=== PATIENT | female | born 1965 | race Caucasian/White ===

== ENCOUNTER 2016-09-30 15:37 | Emergency (ER) | payer BC ==
[~2016-09-30] VITALS: Ht 170.2 cm; Wt 83.8 kg
[~2016-09-30 15:37] MED LIST: ALPR0.5T PO; MULT-587 PO; PARO40TA72 PO; TOPI50TA57 PO
--- OUTSIDE RECORDS SUMMARY | 2016-09-30 15:41 | XMS REPORT | Referral Summary ---
Author Author [facility], [facility] Organization [facility] Address Unknown Phone Unavailable Care Team Providers Care Party Plan Sales Consultant Name Role Phone Kimberly Tejeda Primary Care Physician [phone] Encounter VC Date(s): 04/18/15 - 04/18/15 [facility], [address] [place] [address] Discharge Diagnosis: Pleurisy Discharge Disposition: 01-Home or Self Care Attending Physician: Bandar Adams DO Admitting Physician: Bandar Adams DO Vital Signs Most recent to 1 oldest [Reference Range]: Temperature Tympanic 37.4 degC [36.6-38.1 degC] (04/18/15 1:49 PM) Peripheral Pulse 84 bpm Rate [60-100 bpm] (04/18/15 1:49 PM) Blood Pressure 127/85 mmHg [90-140/60-90 mmHg] (04/18/15 1:49 PM) Problem List Condition Effective Dates Status Health Status Informant Alcohol Active abuse(Confirmed) Alcohol abuse Active (disorder)(Confirmed ) Anal Active patient fistula(Confirmed) Anxiety state Active (finding)(Confirmed) Benign essential Active hypertension (disorder)(Confirmed ) Depression(Confirmed Active ) Diverticulitis(Confi Active rmed) Anxiety Active disorder(Confirmed) hypertension(Confirm Active ed) Obesity(Confirmed) Active patient Panic Active disorder(Confirmed) Panic disorder Active without agoraphobia (disorder)(Confirmed ) Psoriasis(Confirmed) Active Tobacco Active patient user(Confirmed) Allergies, Adverse Reactions, Alerts Substance Reaction Severity Status Latex rash Active stinging of the lips penicillin Active sulfanilamide topical Active Medications ALPRAZolam 0.5 mg oral tablet 0.5 mg 1 tabs, Oral, BID, as needed for anxiety, Delphine Dominguez, # 30 tabs, 0 Refill(s) Start Date: 02/14/15 Status: Ordered Combivent Respimat CFC free 20 mcg-100 mcg/inh inhalation aerosol 1 puffs, Inhalation, QID, # 1 inhalers, 1 Refill(s), Pharmacy: [facility] #[id number] Start Date: 04/04/15 Status: Ordered Diflucan 150 mg oral tablet 150 mg 1 tabs, Oral, qWeek, # 2 tabs, 0 Refill(s), Pharmacy: [facility] # [id number], 1 tabs Oral qWeek Start Date: 04/12/15 Stop Date: 04/19/15 Status: Ordered meloxicam 15 mg oral tablet 15 mg 1 tabs, Oral, Daily, # 30 tabs, 0 Refill(s), Pharmacy: [id number], 1 tabs Oral Daily Start Date: 04/01/15 Status: Ordered Naprosyn 500 mg oral tablet 500 mg 1 tabs, Oral, BID, # 60 tabs, 0 Refill(s), Pharmacy: [facility] # [id number], 1 tabs Oral BID Start Date: 04/18/15 Status: Ordered topiramate 50 mg oral tablet 50 mg 1 tabs, Oral, QID, 0 Refill(s) Start Date: 02/06/15 Status: Ordered Xanax 0.5 mg oral tablet 0.5 mg 1 tabs, Oral, BID, as needed for anxiety, X 30 days, # 45 tabs, 0 Refill( s), AUREA Start Date: 04/01/15 Stop Date: 05/01/15 Status: Ordered Results No data available for this section Immunizations Vaccine Date Refusal Reason pneumococcal 23-polyvalent vaccine 10/26/13 Procedures Procedure Date Related Diagnosis Body Site Fistulectomy Anal1 02/07/15 Colonoscopy 2001 Colonoscopy 1998 Hysterectomy 1990 Breast augmentation Tonsillectomy Tooth extraction2 1auto-populated from documented surgical case 2WISDOM TEETH Social History Social History Type Response Smoking Status Current every day smoker; Type: Cigarettes; Tobacco use per day: Pack; Number of years: 22 Assessment and Plan Extracted from: Title: Office Visit Note Author: Bandar Adams DO Date: 04/18/15 Assessment/Plan Pleurisy 1. Chest x-ray demonstrate resolving pneumonia. 2. History and clinical finding are consistent with pleurisy. 3. Was treated in the office with 60mg of Toradol after initial presentation, patient was observed for 30 minutes, at dismissal she had improvement in her discomfort. 4. Was dismissed with Rx for Naproxen 500mg bid for 2-4 weeks. 5. Continue with breathing treatment. 6. Continue with smoking cessation effort. Ordered: Office Visit Level 4 Est 38619 XR Chest 2 Views
--- OUTSIDE RECORDS SUMMARY | 2016-09-30 15:41 | XMS REPORT | Referral Summary ---
Author Author [facility], [facility] Organization [facility] Address Unknown Phone Unavailable Care Team Providers Care Dramatic Agent Name Role Phone Kimberly Tejeda Primary Care Physician [phone] Encounter VC Date(s): 06/05/15 - 06/05/15 [facility], [address] [place] [address] Discharge Diagnosis: Anxiety Discharge Disposition: 01-Home or Self Care Attending Physician: Bandar Adams DO Admitting Physician: Bandar Adams DO Vital Signs Most recent to 1 oldest [Reference Range]: Temperature Tympanic 36.6 degC [36.6-38.1 degC] (06/05/15 8:32 AM) Peripheral Pulse 80 bpm Rate [60-100 bpm] (06/05/15 8:32 AM) Blood Pressure 120/80 mmHg [90-140/60-90 mmHg] (06/05/15 8:32 AM) Problem List Condition Effective Dates Status Health Status Informant Alcohol Active abuse(Confirmed) Alcohol abuse Active (disorder)(Confirmed ) Anal Active patient fistula(Confirmed) Anxiety state Resolved (finding)(Confirmed) Benign essential Active hypertension (disorder)(Confirmed ) [...] QID, # 1 inhalers, 1 Refill(s), Pharmacy: [facility] #[id number] Start Date: 04/04/15 Status: Ordered Combivent Respimat CFC free 20 mcg-100 mcg/inh inhalation aerosol See Instructions, INHALE ONE INHALATION BY MOUTH FOUR TIMES A DAY, # 4 unknown unit, eRx: [facility] #[id number], INHALE ONE INHALATION BY MOUTH FOUR TIMES A DAY Start Date: 05/29/15 Status: Ordered meloxicam 15 mg oral tablet 15 mg 1 tabs, Oral, Daily, # 30 tabs, 0 Refill(s), Pharmacy: [id number], 1 tabs Oral Daily Start Date: 04/01/15 Status: Ordered Naprosyn 500 mg oral tablet See Instructions, TAKE ONE TABLET BY MOUTH TWICE A DAY, # 60 tabs, 1 Refill(s), eRx: [facility] #[id number], TAKE ONE TABLET BY MOUTH TWICE A DAY Start Date: 05/14/15 Status: Ordered Paxil 40 mg oral tablet 40 mg 1 tabs, Oral, Daily, # 30 tabs, 0 Refill(s), Pharmacy: [facility] # [id number], 1 tabs Oral Daily Start Date: 06/05/15 Status: Ordered topiramate 50 mg oral tablet 50 mg 1 tabs, Oral, QID, 0 Refill(s) Start Date: 02/06/15 Status: Ordered Results No data available for [...] Visit Note Author: Bandar Adams DO Date: 06/05/15 Assessment/Plan Anxiety 1. We will increase the Paxil to 40 mg daily. 2. Continue cutting back on alcohol consumption with the goal of alcohol cessation. 3. Continue cutting back on tobacco cessation. 4. Follow-up in a month for reevaluation since we titrating the Paxil, sooner if worsening symptoms or suicidal thoughts. Patient voiced understanding. Ordered: Office Visit Level 4 Est [id number] Orders: PARoxetine, 40 mg 1 tabs, Oral, Daily, # 30 tabs, 0 Refill(s), Pharmacy: [facility] #[id number], 1 tabs Oral Daily
--- OUTSIDE RECORDS SUMMARY | 2016-09-30 15:41 | XMS REPORT | Referral Summary ---
Author Author [facility], [facility] Organization [facility] Address Unknown Phone Unavailable Care Team Providers Care Environmental Property Assessor Name Role Phone Kimberly Tejeda Primary Care Physician [phone] Encounter VC Date(s): 12/21/14 - 12/21/14 [facility], [address] [place] [address] [place] Discharge Disposition: 01-Home or Self Care Attending Physician: Dank Tejeda MD Admitting Physician: Dank Tejeda MD Vital Signs Most recent to 1 oldest [Reference Range]: Temperature Tympanic 36.7 degC [36.6-38.1 degC] (12/21/14 8:14 AM) Peripheral Pulse 72 bpm Rate [60-100 bpm] (12/21/14 8:14 AM) Respiratory Rate 14 br/min [14-20 br/min] (12/21/14 8:14 AM) Blood Pressure 116/80 mmHg [90-140/60-90 mmHg] (12/21/14 8:14 AM) Problem List Condition Effective Dates Status [...] # 30 tabs, 0 Refill(s) Start Date: 06/28/15 Status: Ordered Combivent Respimat CFC free 20 mcg-100 mcg/inh inhalation aerosol 1 puffs, Inhalation, QID, # 1 inhalers, 1 Refill(s), Pharmacy: [facility] #[id number] Start Date: 04/04/15 Status: Ordered Combivent Respimat CFC free 20 mcg-100 mcg/inh inhalation aerosol See Instructions, INHALE ONE INHALATION BY MOUTH FOUR TIMES A DAY, # 4 unknown unit, eRx: [facility] #[id number], INHALE ONE INHALATION BY MOUTH FOUR TIMES A DAY Start Date: 05/29/15 Status: Ordered meloxicam 15 mg oral tablet See Instructions, TAKE ONE TABLET BY MOUTH DAILY, # 30 tabs, eRx: [facility] #[id number], TAKE ONE TABLET BY MOUTH DAILY Start Date: 06/10/15 Status: Ordered Naprosyn 500 mg oral tablet See Instructions, TAKE ONE TABLET BY MOUTH TWICE A DAY, # 60 tabs, 1 Refill(s), eRx: [facility] #[id number], TAKE ONE TABLET BY MOUTH TWICE A DAY Start Date: 05/14/15 Status: Ordered Paxil 40 mg oral tablet See Instructions, TAKE ONE TABLET BY MOUTH DAILY, # 30 tabs, 5 Refill(s), eRx: [facility] #[id number], TAKE ONE TABLET BY MOUTH DAILY Start Date: 07/01/15 Status: Ordered topiramate 50 mg oral tablet [...] Extracted from: Title: Office Visit Note Author: Dank Tejeda MD Date: 12/21/14 Assessment/Plan Anxiety state (finding) Benign essential hypertension (disorder) Mass of perirectal soft tissue Plan: We discussed that this possibly could be a fistula. If it is still present several weeks from now I may just have you see Dr. Eric for that. I am going to place you on an antibiotic. If it's not healing over the next week to 2 weeks then call us back. I did give you some Anusol for your occasional episodes of hemorrhoids. Follow-up in 6 months for hypertension. Orders: ciprofloxacin, 500 mg 1 tabs, Oral, q12hr, X 10 days, # 20 tabs, 0 Refill(s), Pharmacy: [facility], 1 tabs Oral q12hr,x10 days hydrocortisone topical, 1 daksha, Rectal, BID, X 14 days, # 30 g, 0 Refill(s), Pharmacy: [id number]
--- OUTSIDE RECORDS SUMMARY | 2016-09-30 15:41 | XMS REPORT | Summary of Care ---
Author Author Augustine Lucero M.D. Organization Unknown Address Unknown Phone Unavailable Care Team Providers Care Color Mixer Name Role Phone Augustine Lucero M.D. Unavailable Unavailable Bandar Adams Unavailable Unavailable Unavailable Unavailable Functional Status Name Dates Details Functional status health issues are not documented Status: Name Dates Details Cognitive status health issues are not documented Status: Problems Name Dates Details Laryngopharyngeal reflux (LPR) (478.79, J38.7) Status: Active Enlarged adenoids (474.12, J35.2) Status: Active Medications Name Dates Details Topiramate 100 MG Oral Tablet Augustine Lucero M.D. * Start 14-Apr-2016 Active PARoxetine HCl - 40 MG Oral Tablet * Refills: 0 Augustine Lucero M.D. * Start 14-Apr-2016 Active Allergies and Adverse Reactions Name Dates Details Latex Gloves MISC (Allergy) Status: Active Sulfa Drugs (Allergy) Status: Active Procedures Procedure Dates Details History of Tonsillectomy History of Breast Surgery Enlargement Procedure History of Shoulder Surgery Procedures not documented Immunization Name Dates Details Immunizations not documented Family History Name Dates Details Family history of hypertension (V17.49, Z82.49) Status: Active Social History Name Dates Details - Status: Name Dates Details Smoker. current status unknown Vital Signs Date Test Result Details 14-Apr-2016 10:57 BP Systolic 142 mm[Hg] Status: Comments: Location: ; Position: BP Diastolic 91 mm[Hg] Status: Comments: Location: ; Position: Temperature 97.9 f Status: Comments: Method: Heart Rate 80 /min Status: Comments: Location: ; Height 67 in Status: Weight 180 lb Status: Body Mass Index Calculated 28.19 kg/m2 Status: Body Surface Area Calculated 1.93 m2 Status: Results Date Description Value Details Results not documented Plan of Care Name Dates Details Planned Observations Planned Goals not documented Planned Encounters Appointment; Provider: Augustine Lucero M.D. On 21-Jul-2016 09:15 Instructions Name Dates Details Instructions not documented Encounters Appointment; Augustine Lucero M.D. Encounter Diagnosis: Problem not documented On 14-Apr-2016 10:30
--- OUTSIDE RECORDS SUMMARY | 2016-09-30 15:41 | XMS REPORT | Referral Summary ---
Author Author [facility], [facility] Organization [facility] Address Unknown Phone Unavailable Care Team Providers Care Barn Boss Name Role Phone Kimberly Tejeda Primary Care Physician [phone] Encounter VC Date(s): 04/12/15 - 04/12/15 [facility], [address] [place] [address] [place] Discharge Diagnosis: Alcoholism /alcohol abuse Discharge Diagnosis: Tobacco abuse counseling Discharge Diagnosis: Right middle lobe pneumonia Discharge Disposition: 01-Home or Self Care Attending Physician: Bandar Adams DO Admitting Physician: Bandar Adams DO Vital Signs Most recent to 1 oldest [Reference Range]: Temperature Tympanic 36 degC [36.6-38.1 degC] *LOW* (04/12/15 8:05 AM) Peripheral Pulse 65 bpm Rate [60-100 bpm] (04/12/15 8:05 AM) Blood Pressure 109/60 mmHg [90-140/60-90 mmHg] (04/12/15 8:05 AM) Problem List Condition Effective Dates Status [...] QID, # 1 inhalers, 1 Refill(s), Pharmacy: [facility] #[id number] Start Date: 04/04/15 Status: Ordered Diflucan 150 mg oral tablet 150 mg 1 tabs, Oral, qWeek, # 2 tabs, 0 Refill(s), Pharmacy: [facility] # [id number], 1 tabs Oral qWeek Start Date: 04/12/15 Stop Date: 04/19/15 Status: Ordered meloxicam 15 mg oral tablet 15 mg 1 tabs, Oral, Daily, # 30 tabs, 0 Refill(s), Pharmacy: [id number], 1 tabs Oral Daily Start Date: 04/01/15 Status: Ordered predniSONE 20 mg oral tablet 20 mg 1 tabs, Oral, Daily, X 5 days, # 5 tabs, 0 Refill(s), Pharmacy: [facility] #[id number], 1 tabs Oral Daily,x5 days Start Date: 04/12/15 Stop Date: 04/17/15 Status: Ordered topiramate 50 mg oral tablet [...] section Immunizations Vaccine Date Refusal Reason pneumococcal 13-valent conjugate vaccine 10/26/13 pneumococcal 23-polyvalent vaccine 10/26/13 Procedures Procedure Date [...] Visit Note Author: Bandar Adams DO Date: 04/12/15 Assessment/Plan Alcoholism /alcohol abuse 1. Cessation recommended. 2. Patient voiced understanding but does not seem interested at this time. Ordered: Office Visit Level 4 Est 23208 Smoking and tobacco use cessation counseling visit 3 to 10 minutes 09874 Right middle lobe pneumonia 1. Continue Combivent 4 times a day. 2. Repeat chest x-ray today shows mild improvement compared to previous. 3. Clinically the patient appears to have improved. No additional need for antibiotic at this time. 4. May add Mucinex 2 capsules 3 times a day for mucolytic effect. We'll also add prednisone 20 mg dailyfor 5 days. 5. Again we addressed tobacco cessation, she does not want to try any dictations at this time. 6. Follow-up in a month for reevaluation and repeat chest x-ray, earlier if worsening symptoms or new respiratory presentation. Ordered: Office Visit Level 4 Est 64183 Tobacco abuse counseling 1. Cessation recommended,she will try to quit on her own. Ordered: Office Visit Level 4 Est 41047 Smoking and tobacco use cessation counseling visit 3 to 10 minutes 38095 Orders: fluconazole, 150 mg 1 tabs, Oral, qWeek, # 2 tabs, 0 Refill(s), Pharmacy: [facility] #[id number], 1 tabs Oral qWeek predniSONE, 20 mg 1 tabs, Oral, Daily, X 5 days, # 5 tabs, 0 Refill(s), Pharmacy: [facility] #[id number], 1 tabs Oral Daily,x5 days XR Chest 2 Views
--- OUTSIDE RECORDS SUMMARY | 2016-09-30 15:41 | XMS REPORT | Referral Summary ---
Author Author [facility], [facility] Organization [facility] Address Unknown Phone Unavailable Care Team Providers Care Guest Specialist Name Role Phone Bandar Adams Primary Care Physician [phone] Encounter VC Date(s): 04/18/15 - 04/18/15 [facility] [address] [place] [address] [place] Discharge Diagnosis: [...] Effective Dates Status Health Status Informant Alcohol abuse Active (disorder)(Confirmed ) Alcohol Active abuse(Confirmed) Anal Active patient fistula(Confirmed) Anxiety state Resolved (finding)(Confirmed) Benign essential Active hypertension (disorder)(Confirmed ) Depression(Confirmed Active ) Diverticulitis(Confi Active rmed) Anxiety Active disorder(Confirmed) hypertension(Confirm Active ed) Obesity(Confirmed) Active patient Panic disorder Active without agoraphobia (disorder)(Confirmed ) Panic Active disorder(Confirmed) Psoriasis(Confirmed) Active Tobacco Active patient user(Confirmed) Allergies, [...] QID, # 1 inhalers, 1 Refill(s), Pharmacy: [facility] #[id number] Start Date: 04/04/15 Status: Ordered Combivent Respimat CFC free 20 mcg-100 mcg/inh inhalation aerosol See Instructions, INHALE ONE INHALATION BY MOUTH FOUR TIMES A DAY, # 4 unknown unit, eRx: [facility] #[id number], INHALE ONE INHALATION BY MOUTH FOUR TIMES A DAY Start Date: 05/29/15 Status: Ordered meloxicam 15 mg oral tablet See Instructions, TAKE ONE TABLET BY MOUTH DAILY, # 30 tabs, eRx: [facility] #[id number], TAKE ONE TABLET BY MOUTH DAILY Start Date: 06/10/15 Status: Ordered meloxicam 15 mg oral tablet See Instructions, TAKE ONE TABLET BY MOUTH DAILY, # 30 tabs, 0 Refill(s), Pharmacy: [facility] #[id number], TAKE ONE TABLET BY MOUTH DAILY Start Date: 10/23/15 Status: Ordered Naprosyn 500 mg oral tablet See Instructions, TAKE ONE TABLET BY MOUTH TWICE A DAY, # 60 tabs, 1 Refill(s), eRx: [facility] #[id number], TAKE ONE TABLET BY MOUTH TWICE A DAY Start Date: 05/14/15 Status: Ordered Paxil 40 mg oral tablet See Instructions, TAKE ONE TABLET BY MOUTH DAILY, # 30 tabs, 5 Refill(s), eRx: [facility] #[id number], TAKE ONE TABLET BY MOUTH DAILY Start Date: 07/01/15 Status: Ordered topiramate 50 mg oral tablet 50 mg 1 tabs, Oral, QID, 0 Refill(s) Start Date: 02/06/15 Status: Ordered Results No data available for this section Immunizations Vaccine Date Refusal Reason pneumococcal 23-polyvalent vaccine 10/26/13 Procedures Procedure Date Related Diagnosis Body Site Colonoscopic polypectomy1 09/05/15 Fistulectomy Anal2 02/07/15 Colonoscopy3 2000 Colonoscopy 1998 Hysterectomy 1990 Breast augmentation Tonsillectomy Tooth extraction4 1Tubular adenoma 1, biopsies indicating lymphocytic colitis, sigmoid diverticulosis, avoid NSAIDs. 2auto-populated from documented surgical case 3diverticulitis 4WISDOM TEETH Social History Social History Type Response [...] effort. Ordered: Office Visit Level 4 Est 74928 XR Chest 2 Views
--- OUTSIDE RECORDS SUMMARY | 2016-09-30 15:41 | XMS REPORT | Summary of Care ---
Author Author Augustine Lucero M.D. Organization Unknown Address Unknown Phone Unavailable Care Team Providers Care Candle Making Supervisor Name Role Phone Augustine Lucero M.D. Unavailable Unavailable Techang Bandar Unavailable Unavailable Unavailable Unavailable Functional Status Name Dates Details Functional status health issues are not documented Status: Name Dates Details Cognitive status health issues are not documented Status: Problems Name Dates Details Enlarged adenoids (474.12, J35.2) Status: Active Laryngopharyngeal reflux (LPR) (478.79, J38.7) Status: Active Allergic rhinitis (477.9, J30.9) Status: Active Hypertrophy of both inferior nasal turbinates (478.0, J34.3) Status: Active Nasal obstruction (478.19, J34.89) Status: Active Medications Name Dates Details Topiramate [...] unknown Vital Signs Date Test Result Details 27-Jul-2016 12:50 Temperature 97 f Status: Comments: Method: Heart Rate 113 /min Status: Comments: Location: ; Physical Findings 99 Status: Comments: O2 Saturation Results Date Description Value Details Results not documented Plan of Care Name Dates Details Planned Observations Planned Goals not documented Instructions Name Dates Details Instructions not documented Encounters Appointment; Augustine Lucero M.D. Encounter Diagnosis: Problem not documented On 14-Apr-2016 10:30
--- OUTSIDE RECORDS SUMMARY | 2016-09-30 15:41 | XMS REPORT | Referral Summary ---
Author Author [facility], [facility] Organization [facility] Address Unknown Phone Unavailable Care Team Providers Care Terminal Gauger Supervisor Name Role Phone Bandar Adams Primary Care Physician [phone] Encounter Date(s): 04/01/15 - 04/01/15 [facility] [place] [address]- Discharge Diagnosis: Alcohol abuse Discharge Diagnosis: Lumbago Discharge Diagnosis: Anxiety disorder Discharge Diagnosis: Acute bronchitis Discharge Disposition: -Home or Self Care Attending Physician: Dank Tejeda MD Admitting Physician: Dank Tejeda MD Vital Signs Most recent to 1 oldest [Reference Range]: Temperature Tympanic 36.9 degC [36.6-38.1 degC] (04/01/15 2:29 PM) Peripheral Pulse 92 bpm Rate [60-100 bpm] (04/01/15 2:29 PM) Respiratory Rate 16 br/min [14-20 br/min] (04/01/15 2:29 PM) Blood Pressure 112/70 mmHg [90-140/60-90 mmHg] (04/01/15 2:29 PM) Problem List Condition Effective Dates Status [...] QID, # 1 inhalers, 1 Refill(s), Pharmacy: [facility] #[id number] Start Date: 04/04/15 Status: Ordered Combivent Respimat CFC free 20 mcg-100 mcg/inh inhalation aerosol See Instructions, INHALE ONE INHALATION BY MOUTH FOUR TIMES A DAY, # 4 unknown unit, eRx: [facility] #[id number], INHALE ONE INHALATION BY MOUTH FOUR TIMES A DAY Start Date: 05/29/15 Status: Ordered meloxicam 15 mg oral tablet See Instructions, TAKE ONE TABLET BY MOUTH DAILY, # 30 tabs, eRx: [facility] #[id number], TAKE ONE TABLET BY MOUTH DAILY Start Date: 06/10/15 Status: Ordered Naprosyn 500 mg oral tablet See Instructions, TAKE ONE TABLET BY MOUTH TWICE A DAY, # 60 tabs, 1 Refill(s), eRx: [facility] #[id number], TAKE ONE TABLET BY MOUTH TWICE A DAY Start Date: 05/14/15 Status: Ordered Paxil 40 mg oral tablet See Instructions, TAKE ONE TABLET BY MOUTH DAILY, # 30 tabs, 5 Refill(s), eRx: [facility] #[id number], TAKE ONE TABLET BY MOUTH DAILY Start [...] Visit Note Author: Dank Tejeda MD Date: 04/01/15 Assessment/Plan Acute bronchitis Alcohol abuse Anxiety disorder Lumbago, LUMBAGO Plan: We discussed the need to quit smoking, exercise,to stopped drinking alcoholand possibly go through her program. We discussed the need for weight loss and healthy lifestyle. I did prescribe an antibiotic for your bronchitis. I x-rayed her back and it looks like there is no compression at this point. We might consider doing physical therapy. We'll daily anti- inflammatory medication. Ordered: XR Spine Lumbosacral Minimum 4 Views Orders: ALPRAZolam, 0.5 mg 1 tabs, Oral, BID, as needed for anxiety, X 30 days , # 45 tabs, 0 Refill(s), AUREA azithromycin, 1 tabs, Oral, Daily, X 10 days, # 10 tabs, 0 Refill(s), Pharmacy : [id number], 1 tabs Oral Daily,x10 days Addendum Patient's here for preventative health care visit. I am adding preventative health by care to her assessments. Dank Tejeda MD on April 01, 2015 17:14:15 CDT
--- OUTSIDE RECORDS SUMMARY | 2016-09-30 15:41 | XMS REPORT | Summary of Care ---
Author Author Augustine Lucero M.D. Organization Unknown Address Unknown Phone Unavailable Care Team Providers Care Study Director Name Role Phone Augustine Lucero M.D. Unavailable Unavailable TecBandar mauricio Unavailable Unavailable Unavailable Unavailable Functional Status Name [...]
--- OUTSIDE RECORDS SUMMARY | 2016-09-30 15:42 | XMS REPORT | Referral Summary ---
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 Name Role Phone Bandar Adams Primary Care Physician [phone] Encounter VC Date(s): 02/07/15 - 02/07/15 [facility]3] [address] [place] [address] ZL Final: ANAL FISTULA Final: EXTERNAL HEMORRHOIDS WITHOUT MENTION OF COMPLICATION Final: ALCOHOL ABUSE, UNSPECIFIED DRINKING BEHAVIOR Final: BENIGN ESSENTIAL HYPERTENSION Final: DEPRESSIVE DISORDER, NOT ELSEWHERE CLASSIFIED Final: Panic disorder without agoraphobia Final: Other Psoriasis Final: TOBACCO USE DISORDER Discharge Disposition: 01-Home or Self Care Attending Physician: Rigoberto Cartagena MD Admitting Physician: Rigoberto Cartagena MD Vital Signs Most recent to 1 oldest [Reference Range]: Temperature Skin 36.2 degC [36-37 degC] (02/07/15 4:15 PM) Temperature Temporal 36.1 degC Artery [36.3-37.8 *LOW* degC] (02/07/15 12:14 PM) Peripheral Pulse 63 bpm Rate [60-100 bpm] (02/07/15 5:00 PM) Heart Rate Monitored 79 bpm [60-100 bpm] (02/07/15 4:15 PM) Respiratory Rate 16 br/min [14-20 br/min] (02/07/15 5:00 PM) Blood Pressure 117/71 mmHg [90-140/60-90 mmHg] (02/07/15 5:00 PM) Mean Arterial 96 mmHg Pressure, Cuff (02/07/15 4:15 PM) SpO2 98 % (02/07/15 4:30 PM) Problem List Condition Effective Dates Status [...] tabs, Oral, BID, as needed for anxiety, Danettemadi Dominguez, # 30 tabs, 0 Refill(s) Start Date: 06/28/15 Status: Ordered Combivent Respimat CFC free 20 mcg-100 mcg/inh inhalation aerosol 1 puffs, Inhalation, QID, # 1 inhalers, 1 Refill(s), Pharmacy: [facility] #[id number] Start Date: 04/04/15 Status: Ordered Combivent Respimat CFC free 20 mcg-100 mcg/inh inhalation aerosol See Instructions, INHALE ONE INHALATION BY MOUTH FOUR TIMES A DAY, # 4 unknown unit, eRx: [facility] #[id number], INHALE ONE INHALATION BY MOUTH FOUR TIMES A DAY Start Date: 05/29/15 Status: Ordered meloxicam 15 mg oral tablet See Instructions, TAKE ONE TABLET BY MOUTH DAILY, # 30 tabs, eRx: [facility] #[id number], TAKE ONE TABLET BY MOUTH DAILY Start Date: 06/10/15 Status: Ordered Naprosyn 500 mg oral tablet See Instructions, TAKE ONE TABLET BY MOUTH TWICE A DAY, # 60 tabs, 1 Refill(s), eRx: [facility] #[id number], TAKE ONE TABLET BY MOUTH TWICE A DAY Start Date: 05/14/15 Status: Ordered Paxil 40 mg oral tablet See Instructions, TAKE ONE TABLET BY MOUTH DAILY, # 30 tabs, 5 Refill(s), eRx: [facility] #[id number], TAKE ONE TABLET BY MOUTH DAILY Start Date: 07/01/15 Status: Ordered topiramate 50 mg oral tablet 50 mg 1 tabs, Oral, QID, 0 Refill(s) Start Date: 02/06/15 Status: Ordered Results Chemistry Most recent to 1 oldest [Reference Range]: Sodium Lvl [136-144 136 mEq/L mEq/L] (02/07/15 1:11 PM) Potassium Lvl 3.5 mEq/L [3.6-5.1 mEq/L] *LOW* (02/07/15 1:11 PM) Chloride [99-109 109 mEq/L mEq/L] (02/07/15 1:11 PM) CO2 [22-32 mEq/L] 20 mEq/L *LOW* (02/07/15 1:11 PM) AGAP [3-20] 7 (02/07/15 1:11 PM) BUN [4-20 mg/dL] 10 mg/dL (02/07/15 1:11 PM) Glucose Lvl [70-100 106 mg/dL mg/dL] *HI* (02/07/15 1:11 PM) Creatinine Lvl 0.81 mg/dL [0.44-1.03 mg/dL] (02/07/15 1:11 PM) eGFR [>60] >60 1 (02/07/15 1:11 PM) Calcium Lvl 8.7 mg/dL [8.6-10.0 mg/dL] (02/07/15 1:11 PM) Blood Glucose, 99 mg/dL Capillary [70-100 (02/07/15 12:11 PM) mg/dL] 1Result Comment: Multiply eGFR results by 1.21 for race. Immunizations Vaccine Date Refusal Reason pneumococcal 23-polyvalent vaccine 10/26/13 Procedures Procedure Date Related Diagnosis Body Site Fistulectomy Anal1 02/07/15 Colonoscopy 2001 Colonoscopy 1998 Hysterectomy 1990 Breast augmentation Tonsillectomy Tooth extraction2 1auto-populated from documented surgical case 2WISDOM TEETH Social History Social History Type Response Smoking Status Current every day smoker; Type: Cigarettes; Tobacco use per day: Pack; Number of years: 22 Assessment and Plan No data available for this section
--- OUTSIDE RECORDS SUMMARY | 2016-09-30 15:42 | XMS REPORT | Continuity of Care Document ---
Author Author [facility] Address Unknown Phone Unavailable Allergies Active Description Code Type Severity Reaction Onset Reported/Identified Relationship to Patient Clinical Status Yes SULFA Drug Allergy N/A N/A Medications Problems Procedures Results Encounters ACCT No. Visit Date/Time Discharge Status Pt. Type Provider Facility Loc./Unit Complaint [id number] 05/15/2016 06:50:23 05/15/2016 06:50:23 Outpatient [id number] 04/22/2016 08:22:51 04/22/2016 08:22:51 DIS Outpatient [id number] 04/16/2016 06:54:23 04/16/2016 06:54:23 ACT Outpatient [id number] 03/03/2016 03:58:39 03/03/2016 03:58:39 ACT Outpatient [id number] 03/03/2016 03:25:07 03/03/2016 03:25:07 ACT Outpatient [id number] 03/02/2016 20:36:00 03/02/2016 20:36:00 ACT Outpatient [id number] 03/02/2016 19:38:15 03/02/2016 19:38:15 ACT Outpatient [id number] 03/02/2016 19:20:25 03/02/2016 19:20:25 ACT Outpatient [id number] 10/01/2015 13:43:06 10/01/2015 13:43:06 DIS Outpatient [id number] 09/30/2015 13:50:19 09/30/2015 13:50:20 DIS Outpatient [id number] 09/30/2015 13:49:38 09/30/2015 13:49:39 DIS Outpatient [id number] 09/30/2015 13:49:37 09/30/2015 13:49:38 DIS Outpatient [id number] 09/30/2015 13:36:25 09/30/2015 13:36:25 DIS Outpatient [id number] 09/30/2015 11:34:11 09/30/2015 11:34:13 DIS Outpatient [id number] 09/30/2015 11:33:58 09/30/2015 11:34:00 DIS Outpatient [id number] 09/30/2015 11:03:12 09/30/2015 11:03:14 DIS Outpatient [id number] 09/30/2015 10:51:07 09/30/2015 10:51:07 DIS Outpatient [id number] 09/30/2015 10:51:04 09/30/2015 10:51:05 DIS Outpatient [id number] 09/30/2015 10:51:03 09/30/2015 10:51:03 DIS Outpatient [id number] 09/30/2015 10:50:59 09/30/2015 10:51:00 DIS Outpatient [id number] 09/30/2015 10:46:54 09/30/2015 10:46:55 DIS Outpatient [id number] 07/02/2015 12:21:39 07/02/2015 12:21:44 DIS Outpatient [id number] 04/02/2015 09:39:57 04/02/2015 23:59:59 CLS Outpatient [id number] 04/02/2015 09:39:20 04/02/2015 23:59:59 CLS Outpatient [id number] 04/02/2015 09:39:19 04/02/2015 09:39:19 DIS Outpatient [id number] 04/02/2015 09:38:06 04/02/2015 09:38:11 DIS Outpatient [id number] 05/22/2016 15:06:33 DIS Outpatient [id number] 05/20/2016 12:50:32 DIS Outpatient [id number] 04/22/2016 08:23:04 DIS Outpatient [id number] 04/16/2016 09:05:14 ACT Outpatient [id number] 04/16/2016 09:01:42 ACT Outpatient [id number] 04/16/2016 09:01:41 ACT Outpatient [id number] 04/16/2016 08:57:27 ACT Outpatient [id number] 04/16/2016 08:57:03 ACT Outpatient [id number] 04/16/2016 08:57:01 ACT Outpatient [id number] 04/16/2016 08:56:05 ACT Outpatient [id number] 04/16/2016 08:55:45 ACT Outpatient [id number] 04/16/2016 08:55:43 ACT Outpatient [id number] 04/09/2016 09:12:43 Document Registration [id number] 04/08/2016 12:42:02 Document Registration [id number] 04/06/2016 14:46:00 Document Registration [id number] 10/01/2015 10:59:08 DIS Outpatient [id number] 09/30/2015 13:50:24 DIS Outpatient [id number] 09/30/2015 11:58:27 DIS Outpatient [id number] 09/30/2015 11:55:25 DIS Outpatient [id number] 09/30/2015 11:06:39 DIS Outpatient [id number] 09/30/2015 11:00:00 Document Registration [id number] 09/30/2015 10:59:00 Document Registration [id number] 09/30/2015 10:51:05 DIS Outpatient
--- OUTSIDE RECORDS SUMMARY | 2016-09-30 15:42 | XMS REPORT | Continuity of Care Document ---
Author Author [facility] Organization [facility] Address Unknown Phone Unavailable Support Name Relationship Address Phone FELICIA DAUGHERTY Caregiver [facility] [address] [place] [address] ROBERTO SCHERER MD Caregiver [address] [place] [address] [phone] KAYLA AGRCÍA Next Of Kin [address] [place] [address] Insurance Providers Payer Name Policy Number Subscriber Name Relationship [facility] [id number] Elyse Francisco 20 Self Advance Directives Directive Response Recorded Date/Time Advanced Directives Type None 09/08/14 1:39pm Problems Medical Problems Problem Onset Date Status Delirium tremens Unknown Active Alcohol abuse Unknown Active Alcohol withdrawal seizure Unknown Active HTN (hypertension) Unknown Active Depression Unknown Active Anxiety Unknown Active Obesity (BMI 30.0-34.9) Unknown Active Numbness and tingling Unknown Active Anxiety Unknown Active Medications Medication Dose Route Sig Days/Qty Instructions Order Date Discontinued Date Status Alprazolam 0.5 Mg PO TWICE A DAY PRN ANXIETY 02/27/14 Active Mirtazapine 30 Mg PO BEDTIME 02/27/14 Active Lisinopril 1 Tab PO BEDTIME 02/27/14 Active Aspirin 325 Mg PO NEEDED 30 Days 02/27/14 Active Oxazepam 1 Cap PO taper For ALCOHOL WITHDRAWL SYMPTOMS 30 Qty 02/28/14 Active Omeprazole Magnesium 1 Tab PO DAILY PRN DYSPEPSIA 30 Qty 02/28/14 Active Multivitamin 1 Tab PO DAILY 30 Qty 02/28/14 Active Calcium Carbonate/Vitamin D3 1 Tab PO DAILY 30 Days 02/28/14 Active Social History Query Response Start Date Stop Date Smoking Status Current every day smoker Hospital Discharge Instructions No hospital discharge instructions. Plan of Care No plan of care. Functional Status Query Response Date Recorded Physical Hygiene Self September 08, 2014 1:39pm Disabilities None September 08, 2014 1:39pm Devices Used None September 08, 2014 1:39pm Dressing Self September 08, 2014 1:39pm Ambulation Self September 08, 2014 1:39pm Diet Self September 08, 2014 1:39pm Mental Status Alert September 08, 2014 2:55pm Disabilities None September 08, 2014 1:39pm Devices Used None September 08, 2014 1:39pm Physical Hygiene Self September 08, 2014 1:39pm Dressing Self September 08, 2014 1:39pm Ambulation Self September 08, 2014 1:39pm Diet Self September 08, 2014 1:39pm Allergies, Adverse Reactions, Alerts Allergen Type Severity Reaction Status Last Updated Latex Allergy Mild dry red skin Active 02/27/14 SULFA Allergy Mild rash Active 02/27/14 Immunizations Name Given Type Hx Influenza Vaccination Y 2013 Historical Hx Pneumococcal Vaccination Y UNSURE OF DATE BUT BELIEVE IT WAS IN 2012 Historical Hx Influenza Vaccination Y 2013 Historical Vital Signs Acute Vital Signs Vital Response Date/Time Temperature (Fahrenheit) 97.6 deg F (96.8 - 99.1) Temperature (Calculated Celsius) 36.88730 degrees C (36.0 - 37.3) Pulse Rate (adult) 91 bpm (60 - 100) Respiratory Rate 16 breaths/min (10 - 20) O2 Sat by Pulse Oximetry 95 % (90 - 100) Blood Pressure 122/76 mm Hg Height 5 ft 7 in Weight 204 lb Body Mass Index 32.0 kg/m^2 Results Test Source Date Result Interp. Ref. Range Comments Alanine Aminotransferase (ALT/SGPT) February 27, 2014 4:55am 27 U/L N 9- 52 Albumin February 27, 2014 4:55am 4.1 G/DL N 3.5-5.0 Albumin/Globulin Ratio February 27, 2014 4:55am 1.0 RATIO L 1.1-2.2 Alcohol, Quantitative February 27, 2014 4:55am <10 MG/DL - Alkaline Phosphatase February 27, 2014 4:55am 77 U/L N 38-126 Anion Gap September 08, 2014 2:35pm 11 MEQ/L N 5-15 Aspartate Amino Transf (AST/SGOT) February 27, 2014 4:55am 24 U/L N 14-36 BUN/Creatinine Ratio September 08, 2014 2:35pm 19 RATIO N 6-26 Basophils # (Auto) September 08, 2014 2:35pm 0.1 T/MM3 N 0-0.2 Basophils (%) (Auto) September 08, 2014 2:35pm 0.7 % N 0-2 Blood Urea Nitrogen September 08, 2014 2:35pm 15.0 MG/DL N 7-17 Calcium Level September 08, 2014 2:35pm 8.6 MG/DL N 8.4-10.2 Calculated Osmolality September 08, 2014 2:35pm 267 MOSM/KG N 261-280 Carbon Dioxide Level September 08, 2014 2:35pm 22 MEQ/L N 22-30 Chemistry Specimen Hemolysis September 08, 2014 2:35pm < 15 0-25 0-25 : No Hemolysis.26-70: Slight Hemolysis - can falsely elevate K and Urine Protein. 71-285: Moderate Hemolysis - can falsely elevate K, Troponin I, CA 19-9, PTH, CSF GLucose, and Urine Protein, and can falsely decrease Phenytoin. 286-999: Gross Hemolysis - can falsely elevate K, Troponin I, CA 19-9, PTH, CSF Glucose, and Urine Protine, and can falsely decrease Phenytoin. Recommend specimen recollection. Chloride Level September 08, 2014 2:35pm 105 MEQ/L N 98-107 Creatinine September 08, 2014 2:35pm 0.8 MG/DL N 0.7-1.2 Eosinophils # (Auto) September 08, 2014 2:35pm 0.4 T/MM3 N 0-0.5 Eosinophils (%) (Auto) September 08, 2014 2:35pm 5.6 % H 0-4 Free Thyroxine February 27, 2014 3:39pm 0.83 NG/DL N 0.78-2.19 COMMENT may use blood in lab Globulin February 27, 2014 4:55am 4.1 G/DL H 2.4-3.6 Glomerular Filtration Rate Calc September 08, 2014 2:35pm 77 - Glucose Level September 08, 2014 2:35pm 98 MG/DL N 65-110 Hematocrit September 08, 2014 2:35pm 36.8 % N 36-46 Hemoglobin September 08, 2014 2:35pm 12.3 GM/DL N 12-16 Icterus Index September 08, 2014 2:35pm < 2 0-7 Immature Granulocyte # (Auto) September 08, 2014 2:35pm 0.03 T/MM3 N 0.00 -0.03 Immature Granulocyte % (Auto) September 08, 2014 2:35pm 0.4 % N 0.0-0.5 Lab Scanned Report March 02, 2014 4:17pm REFERENCE LAB [id number] - Lymphocytes # (Auto) September 08, 2014 2:35pm 1.9 T/MM3 N 1-4.8 Lymphocytes (%) (Auto) September 08, 2014 2:35pm 27.3 % N 23-45 Mean Corpuscular Hemoglobin September 08, 2014 2:35pm 31.9 UUG N 26-34 Mean Corpuscular Hemoglobin Concent September 08, 2014 2:35pm 33.4 GM/DL N 31-37 Mean Corpuscular Volume September 08, 2014 2:35pm 95.6 UM3 N 80-100 Mean Platelet Volume September 08, 2014 2:35pm 10.5 UM3 N 9.4-12.4 Monocytes # (Auto) September 08, 2014 2:35pm 0.6 T/MM3 N 0-0.8 Monocytes (%) (Auto) September 08, 2014 2:35pm 8.5 % N 0-9.0 Neutrophils # (Auto) September 08, 2014 2:35pm 4.0 T/MM3 N 1.8-7.7 Neutrophils (%) (Auto) September 08, 2014 2:35pm 57.5 % N 33-66 Platelet Count September 08, 2014 2:35pm 257 T/MM3 N 130-400 Potassium Level September 08, 2014 2:35pm 3.9 MEQ/L N 3.6-5 Prealbumin February 27, 2014 4:55am 48.6 MG/DL H 17.6-36.0 Prolactin February 27, 2014 4:55am 41.5 NG/ML - Normal Female (Non- ): 3.0-18.6 ng/ml;Males: 3.7-17.9 ng/ml RDW Standard Deviation September 08, 2014 2:35pm 41.5 FL N 36.9-50.2 Red Blood Count September 08, 2014 2:35pm 3.85 M/MM3 L 4.00-5.20 Sodium Level September 08, 2014 2:35pm 138 MEQ/L N 134-144 Thyroid Stimulating Hormone (TSH) February 27, 2014 4:55am 6.66 MIU/L H 0.47-4.68 COMMENT maci Total Bilirubin February 27, 2014 4:55am 0.30 MG/DL N 0.20-1.30 Total Protein February 27, 2014 4:55am 8.2 G/DL N 6.3-8.2 Turbidity September 08, 2014 2:35pm < 20 0-20 Vitamin B12 Level February 27, 2014 4:55am 406 PG/ML N 239-931 White Blood Count September 08, 2014 2:35pm 6.9 T/MM3 N 4.5-11.0 Name: ELYSE FRANCISCO Unit #: [id number] : [id number] Sex: F Loc / Svc: ANATOLY DOS: 08/17/14 Signed Report #: [id number] DIAGNOSTIC IMAGING REPORT TYPE OF EXAM: MRI BRAIN W/WO CONTRAST Dictated By: MAURY ASH MD Indication: ITS.REASON: 782.0 LT ARM NUMBNESS MRI BRAIN W/WO CONTRAST: Comparisons: None Technique: Multiplanar, multisequence, MR imaging of the head with and without contrast was acquired. Contrast: 9 mL of Gadavist FINDINGS: The ventricles are of normal size, shape, and contour for the patient's age. The brain stem, cerebellum, and cerebral hemispheres have a normal morphologic appearance as well as MR signal intensity on all pulse sequences. Following intravenous administration of contrast, no areas of abnormal enhancement are evident. There are no areas of restricted diffusion to suggest an acute infarct. There is no evidence of an intracranial mass lesion, intracranial hemorrhage, or hydrocephalus. The visualized portions of the orbits, calvarium, paranasal sinuses, and skull base demonstrate no significant abnormality. IMPRESSION: Normal exam . Procedures Procedure Status Date Provider(s) MRI BRAIN STEM W/O & W/DYE completed 08/17/14 GADAVIST 10ML SDV - Contrast,Gadavist 10ml completed 08/17/14 Encounters Encounter Location Date/Time Departed Emergency Room [facility] 09/08/14 1:39pm Registered [facility] 08/17/14 6:53am Recent Diagnosis
--- OUTSIDE RECORDS SUMMARY | 2016-09-30 15:42 | XMS REPORT | Referral Summary ---
Author Author [facility] Organization [facility] Address Unknown Phone Unavailable Care Team Providers Care Practice Management Consultant Name Role Phone Bandar Adams Primary Care Physician [phone] Encounter VC Date(s): 05/10/15 - 05/10/15 [facility] [place] [address] Discharge Diagnosis: Alcohol abuse Discharge Diagnosis: Heart palpitations Discharge Diagnosis: Anxiety disorder Discharge Disposition: 01-Home or Self Care Attending Physician: Bandar Adams DO Admitting Physician: Bandar Adams DO Referring Physician: Dank Tejeda MD Vital Signs Most recent to 1 oldest [Reference Range]: Temperature Tympanic 36.3 degC [36.6-38.1 degC] *LOW* (05/10/15 11:04 AM) Peripheral Pulse 85 bpm Rate [60-100 bpm] (05/10/15 11:04 AM) Blood Pressure 118/81 mmHg [90-140/60-90 mmHg] (05/10/15 11:04 AM) SpO2 98 % (05/10/15 11:04 AM) Problem List Condition Effective Dates Status [...] QID, # 1 inhalers, 1 Refill(s), Pharmacy: [facility] #[id number] Start Date: 04/04/15 Status: Ordered Combivent Respimat CFC free 20 mcg-100 mcg/inh inhalation aerosol See Instructions, INHALE ONE INHALATION BY MOUTH FOUR TIMES A DAY, # 4 unknown unit, eRx: [facility] #[id number], INHALE ONE INHALATION BY MOUTH FOUR TIMES A DAY Start Date: 05/29/15 Status: Ordered meloxicam 15 mg oral tablet See Instructions, TAKE ONE TABLET BY MOUTH DAILY, # 30 tabs, eRx: [facility] #[id number], TAKE ONE TABLET BY MOUTH DAILY Start Date: 06/10/15 Status: Ordered meloxicam 15 mg oral tablet See Instructions, TAKE ONE TABLET BY MOUTH DAILY, # 30 tabs, 0 Refill(s), Pharmacy: [facility] #[id number], TAKE ONE TABLET BY MOUTH DAILY Start Date: 10/23/15 Status: Ordered Naprosyn 500 mg oral tablet See Instructions, TAKE ONE TABLET BY MOUTH TWICE A DAY, # 60 tabs, 1 Refill(s), eRx: [facility] #[id number], TAKE ONE TABLET BY MOUTH TWICE A DAY Start Date: 05/14/15 Status: Ordered Paxil 40 mg oral tablet See Instructions, TAKE ONE TABLET BY MOUTH DAILY, # 30 tabs, 5 Refill(s), eRx: [facility] #[id number], TAKE ONE TABLET BY MOUTH DAILY Start [...] Extracted from: Title: Office Visit Note Author: Bnadar Adams DO Date: 05/10/15 Assessment/Plan Alcohol abuse, Alcohol abuse, uncomplicated Pathophysiology of this presentation, and differential diagnosis, discussed in detail with the patient. All questions were answered. 1. I suspect her alcoholism is contributing to her increased symptoms of anxiety. 2. Recommended seeking treatment for alcoholism and alcohol cessation. 3. Patient voiced understanding. Ordered: Office Visit Level 5 Est 37854 Anxiety disorder, Generalized anxiety disorder 1. Recommendation as above. 2. She was started on Paxil 30 mg daily, she is to follow-up in 2 weeks for reevaluation. 3. Continue alprazolam as needed until the Paxil is working better. Patient was advised that the use of benzodiazepine to treat uncontrolled anxiety disorder is inadequate. 4. If her symptoms do not improve then we plan on sending her to psychiatrist for further evaluation and management. Ordered: Office Visit Level 5 Est 48264 Cough 1. The coughing is likely secondary to chronic smoking. Recommended tobacco cessation, patient voiced understanding. 2. Repeat chest x-ray today was for normal finding. The pneumonia on the right middle lobe has cleared completely. 3. Again tobacco cessation was recommended. Ordered: Office Visit Level 5 Est 22309 XR Chest 2 Views Heart palpitations, Palpitations 1. Cardiac auscultation was for normal S1 and S2. 2. EKG is for normal sinus rhythm with a rate of 80, normal MA and QRS. No Q waves, ST segment elevation or T-wave changes noted. 3. Her sensation of palpitation is likely secondary to alcohol withdrawal and anxiety. 4. If she has worsening chest discomfort or or cardiac concerns then she was advised to follow-up in the emergency department. Patient voiced understanding. More than 45 minutes was spent [id number] with this patienttoday. Clinical decision making was complex. Ordered: Office Visit Level 5 Est 71871
--- OUTSIDE RECORDS SUMMARY | 2016-09-30 15:42 | XMS REPORT | Referral Summary ---
Author Author [facility], [facility] Organization [facility] Address Unknown Phone Unavailable Care Team Providers Care Chief Of Field Operations Name Role Phone Bandar Adams Primary Care Physician [phone] Encounter VC Date(s): 07/18/15 - 07/18/15 [facility], [address] [place] [address] Discharge Diagnosis: Diarrhea Discharge Diagnosis: Proteinuria Discharge Diagnosis: Anxiety and depression Discharge Disposition: 01-Home or Self Care Attending Physician: Bandar Adams DO Admitting Physician: Bandar Adams DO Vital Signs Most recent to 1 oldest [Reference Range]: Temperature Tympanic 36.8 degC [36.6-38.1 degC] (07/18/15 2:03 PM) Peripheral Pulse 84 bpm Rate [60-100 bpm] (07/18/15 2:03 PM) Blood Pressure 130/70 mmHg [90-140/60-90 mmHg] (07/18/15 2:03 PM) Problem List Condition Effective Dates Status [...] QID, # 1 inhalers, 1 Refill(s), Pharmacy: [facility] #[id number] Start Date: 04/04/15 Status: Ordered Combivent Respimat CFC free 20 mcg-100 mcg/inh inhalation aerosol See Instructions, INHALE ONE INHALATION BY MOUTH FOUR TIMES A DAY, # 4 unknown unit, eRx: [facility] #[id number], INHALE ONE INHALATION BY MOUTH FOUR TIMES A DAY Start Date: 05/29/15 Status: Ordered meloxicam 15 mg oral tablet See Instructions, TAKE ONE TABLET BY MOUTH DAILY, # 30 tabs, eRx: [facility] #[id number], TAKE ONE TABLET BY MOUTH DAILY Start Date: 06/10/15 Status: Ordered Naprosyn 500 mg oral tablet See Instructions, TAKE ONE TABLET BY MOUTH TWICE A DAY, # 60 tabs, 1 Refill(s), eRx: [facility] #[id number], TAKE ONE TABLET BY MOUTH TWICE A DAY Start Date: 05/14/15 Status: Ordered Paxil 40 mg oral tablet See Instructions, TAKE ONE TABLET BY MOUTH DAILY, # 30 tabs, 5 Refill(s), eRx: [facility] #[id number], TAKE ONE TABLET BY MOUTH DAILY Start Date: 07/01/15 Status: Ordered topiramate 50 mg oral tablet 50 mg 1 tabs, Oral, QID, 0 Refill(s) Start Date: 02/06/15 Status: Ordered Results Hematology Most recent to 1 oldest [Reference Range]: WBC [4.8-10.8 7.6 10*3/uL 10*3/uL] (07/18/15 3:00 PM) RBC [4.00-5.20] 4.54 (07/18/15 3:00 PM) Hgb [12.0-16.0 14.6 gm/dL gm/dL] (07/18/15 3:00 PM) Hct [37.0-47.0 %] 42.2 % (07/18/15 3:00 PM) MCV [82.0-99.0 fL] 93.0 fL (07/18/15 3:00 PM) MCH [27.0-32.0 pg] 32.2 pg *HI* (07/18/15 3:00 PM) MCHC [32.0-36.0 34.6 gm/dL gm/dL] (07/18/15 3:00 PM) RDW [11.5-14.5 %] 12.7 % (07/18/15 3:00 PM) Platelet [150-400 253 10*3/uL 10*3/uL] (07/18/15 3:00 PM) MPV [8.8-14.8 fL] 11.0 fL (07/18/15 3:00 PM) Immature 0.5 % Granulocytes (07/18/15 3:00 PM) [0.0-1.0 %] Neutrophils [51-75 58 % %] (07/18/15 3:00 PM) Lymphocytes [20-46 27 % %] (07/18/15 3:00 PM) Monocytes [4-11 %] 9 % (07/18/15 3:00 PM) Eosinophils [0-4 %] 5 % *HI* (07/18/15 3:00 PM) Basophils [0-2 %] 1 % (07/18/15 3:00 PM) Neutro Absolute 4.42 10*3 [1.90-7.00 10*3] (07/18/15 3:00 PM) Lymph Absolute 2.04 10*3 [0.80-3.30 10*3] (07/18/15 3:00 PM) Summit Absolute 0.68 10*3 [0.30-1.00 10*3] (07/18/15 3:00 PM) Eos Absolute 0.41 10*3 [0.00-0.50 10*3] (07/18/15 3:00 PM) Baso Absolute 0.04 10*3 [0.00-0.20 10*3] (07/18/15 3:00 PM) Chemistry Most recent to 1 oldest [Reference Range]: Sodium Lvl [135-144 135 mEq/L mEq/L] (07/18/15 3:00 PM) Potassium Lvl 4.0 mEq/L [3.5-5.2 mEq/L] (07/18/15 3:00 PM) Chloride [99-111 103 mEq/L mEq/L] (07/18/15 3:00 PM) CO2 [22-31 mEq/L] 22 mEq/L (07/18/15 3:00 PM) AGAP [3-20] 10 (07/18/15 3:00 PM) BUN [7-19 mg/dL] 17 mg/dL (07/18/15 3:00 PM) Glucose Lvl [70-99 99 mg/dL mg/dL] (07/18/15 3:00 PM) Creatinine Lvl 0.87 mg/dL [0.57-1.11 mg/dL] (07/18/15 3:00 PM) eGFR [>60 mL/min] >60 mL/min 1 (07/18/15 3:00 PM) Calcium Lvl 9.0 mg/dL [8.9-10.5 mg/dL] (07/18/15 3:00 PM) Albumin Lvl [3.5-5.0 3.9 gm/dL gm/dL] (07/18/15 3:00 PM) Total Protein 8.4 gm/dL [6.4-8.3 gm/dL] *HI* (07/18/15 3:00 PM) Globulin [1.8-4.0 4.5 gm/dL gm/dL] *HI* (07/18/15 3:00 PM) ALT [0-55 U/L] 14 U/L (07/18/15 3:00 PM) AST [5-34 U/L] 17 U/L (07/18/15 3:00 PM) Alk Phos [40-150 63 U/L U/L] (07/18/15 3:00 PM) Bili Total [0.2-1.2 0.3 mg/dL mg/dL] (07/18/15 3:00 PM) TSH with Reflex Free 2.26 T4 [0.35-4.94] (07/18/15 3:00 PM) 1Result Comment: Multiply eGFR results by 1.21 for race. Urinalysis Most recent to 1 oldest [Reference Range]: UA Color Yellow (07/18/15 3:20 PM) UA Appear Clear (07/18/15 3:20 PM) UA pH [5.0-8.0] 6.0 (07/18/15 3:20 PM) UA Leuk Est Negative [Negative] (07/18/15 3:20 PM) UA Nitrite Negative [Negative] (07/18/15 3:20 PM) UA Protein Negative [Negative] (07/18/15 3:20 PM) UA Glucose Negative [Negative] (07/18/15 3:20 PM) UA Ketones Negative [Negative] (07/18/15 3:20 PM) UA Urobilinogen 0.2 mg/dL [<1.0 mg/dL] (07/18/15 3:20 PM) UA Bili [Negative] Negative (07/18/15 3:20 PM) UA Blood [Negative] Negative (07/18/15 3:20 PM) UA Spec Grav 1.024 [1.003-1.030] (07/18/15 3:20 PM) Type Voided (07/18/15 3:20 PM) Microbiology Reports TEST: Fecal Leucocyte Stain STATUS: Auth (Verified) BODY SITE: SOURCE: Stool COLLECTED DATE/TIME: 07/18/15 3:30 PM Fecal Leucocyte Stain No white blood cells observed Immunizations Vaccine Date Refusal Reason pneumococcal 23-polyvalent [...] 22 Assessment and Plan Extracted from: Title: Change in bowel habits Author: Bandar Adams DO Date: 07/18/15 Assessment/Plan Anxiety and depression 1. Continue with Paxil as previous. 2. Continue making an effort to discontinue alcohol and tobacco use. 3. Follow-up in 3 months for reevaluation. Diarrhea 1. Her history of mucus/possible her stool is concerning for irritable bowel disease. 2. Will order stool studies to include fecal fat for further evaluation. 3. Will refer her to Dr. Eric for evaluation and determination as to whether she needs a colonoscopy. Proteinuria 1. Will order UA for follow-up on history of protein urea. 2. Additional labs ordered today to consist of CBC and complete metabolic profile.
--- OUTSIDE RECORDS SUMMARY | 2016-09-30 15:42 | XMS REPORT | Referral Summary ---
Author Author [facility], [facility] Organization [facility] Address Unknown Phone Unavailable Care Team Providers Care Business Continuity Analyst Name Role Phone Bandar Adams Primary Care Physician [phone] Encounter Date(s): 03/24/16 - 03/24/16 [facility] [place] [place] [address] Discharge Diagnosis: Viral pharyngitis Discharge Diagnosis: Acute pharyngitis due to other specified organisms Discharge Diagnosis: Globus sensation Discharge Diagnosis: Thoracic region somatic dysfunction Discharge Diagnosis: Lumbar region somatic dysfunction Discharge Diagnosis: Cervical somatic dysfunction Discharge Diagnosis: Hoarseness Discharge Disposition: 01-Home or Self Care Attending Physician: Bandar Adams DO Admitting Physician: Bandar Adams DO Vital Signs Most recent to 1 oldest [Reference Range]: Temperature Tympanic 36.0 degC [36.6-38.1 degC] *LOW* (03/24/16 2:48 PM) Blood Pressure 124/70 mmHg [90-140/60-90 mmHg] (03/24/16 2:48 PM) Problem List Condition Effective Dates Status [...] tabs, Oral, BID, as needed for anxiety, [facility], # 30 tabs, 0 Refill(s) Start Date: 06/28/15 Status: Ordered Combivent Respimat CFC free 20 mcg-100 mcg/inh inhalation aerosol See Instructions, INHALE ONE INHALATION BY MOUTH FOUR TIMES A DAY, # 4 unknown unit, eRx: [facility] #[id number], INHALE ONE INHALATION BY MOUTH FOUR TIMES A DAY Start Date: 05/29/15 Status: Ordered meloxicam 15 mg oral tablet See Instructions, TAKE ONE TABLET BY MOUTH DAILY, # 30 tabs, eRx: [facility] #[id number], TAKE ONE TABLET BY MOUTH DAILY Start Date: 06/10/15 Status: Ordered meloxicam 15 mg oral tablet See Instructions, TAKE ONE TABLET BY MOUTH DAILY, # 30 tabs, 0 Refill(s), Pharmacy: [facility] #[id number], TAKE ONE TABLET BY MOUTH DAILY Start Date: 10/23/15 Status: Ordered PARoxetine 40 mg oral tablet See Instructions, TAKE ONE TABLET BY MOUTH DAILY, # 30 tabs, 2 Refill(s), eRx: [facility] #[id number], TAKE ONE TABLET BY MOUTH DAILY Start Date: 03/03/16 Status: Ordered topiramate 50 mg oral tablet 50 mg 1 tabs, Oral, TID, 0 Refill(s) Start Date: 02/06/15 Status: Ordered [...] 22 Assessment and Plan Extracted from: Title: Ambulatory Patient Education Author: Bandar Adams DO Date: 03/24/16 Family Medicine Hoarseness Hoarseness is produced from a variety of causes. It is important to find the cause so it can be treated. In the absence of a cold or upper respiratory illness, any hoarseness lasting more than 2 weeks should be looked at by a specialist. This is especially important if you have a history of smoking or alcohol use. It is also important to keep in mind that as you grow older, your voice will naturally get weaker, making it easier for you to become hoarse from straining your vocal cords. CAUSES Any illness that affects your vocal cords can result in a hoarse voice. Examples of conditions that can affect the vocal cords are listed as follows: Allergies. Colds. Sinusitis. Gastroesophageal reflux disease. Croup. Injury. Nodules. Exposure to smoke or toxic fumes or gases. Congenital and genetic defects. Paralysis of the vocal cords. Infections. Advanced age. DIAGNOSIS In order to diagnose the cause of your hoarseness, your caregiver will examine your throat using an instrument that uses a tube with a small lighted camera ( laryngoscope). It allows your caregiver to look into the mouth and down the throat. TREATMENT For most cases, treatment will focus on the specific cause of the hoarseness. Depending on the cause, hoarseness can be a temporary condition (acute) or it can be long lasting (chronic). Most cases of hoarseness clear up without complications. Your caregiver will explain to you if this is not likely to happen. SEEK IMMEDIATE MEDICAL CARE IF: You have increasing hoarseness or loss of voice. You have shortness of breath. You are coughing up blood. There is pain in your neck or throat. This information is not intended to replace advice given to you by your health care provider. Make sure you discuss any questions you have with your health care provider. Document Released: 06/11/2006 Document Revised: 09/19/2012 Document Reviewed: ExitCare Patient Information 2016 [employer] [facility]. No follow up information was provided. Extracted from: Title: Office Visit Note Author: Bandar Adams DO Date: 03/24/16
--- OUTSIDE RECORDS SUMMARY | 2016-09-30 15:42 | XMS REPORT | Continuity of Care Document ---
Author Author LIVE Organization LIVE Address Unknown Phone Unavailable Support Name Relationship Address Phone ROBERTO SCHERER MD Caregiver [address] [place] [address] [phone] JESSE GUERRA MD Caregiver [address] [place] [id number] ASHER ZAYAS MD Caregiver [address] [address] Unavailable KAYLA GARCÍA Next Of Kin [address] [place] [address] Insurance Providers Payer Name Policy Number Subscriber Name Relationship [facility] [id number] Karla Franciscobala [place] 20 Self Advance Directives Directive Response Recorded Date/Time Advanced Directives Type None 02/27/14 6:34am Ordered Resuscitation Status Full Code 02/27/14 5:55am Resuscitation Documents on File No 02/27/14 6:34am Chief Complaint and Reason for Visit Chief Complaint DELERIUM TREMENS,ALCOHOL ABUSE, ROOM 110 Reason for Visit Delirium tremens Alcohol abuse Alcohol withdrawal seizure HTN (hypertension) Depression Anxiety Obesity (BMI 30.0-34.9) Problems Medical Problems Problem Onset Date Status Delirium tremens Unknown Active Alcohol abuse Unknown Active Alcohol withdrawal seizure Unknown Active HTN (hypertension) Unknown Active Depression Unknown Active Anxiety Unknown Active Obesity (BMI 30.0-34.9) Unknown Active Medications Medication Dose Route Sig [...] DAILY 30 Days 02/28/14 Active Social History No social history. Hospital Discharge Instructions Instructions: Care Instructions: Reason for Hospitalization: SIGMOID COLECTOMY I was in the hospital because (patient own words): REMOVE SOME COLON Discharge Diet: Regular diet as tolerated, avoid raw vegetables for 3 weeks Discharge Activity: - No lifting > 15 pounds for 4 weeks. - No driving until moving and reacting like normal. Follow Up Appointments: - Follow-up with Dr. Pena on 01/15/14 at 11:00 AM for post-op check. Patient Instructions: - May take Tylenol in addition to Ibuprofen. Wound/Incision Care: - May shower. No tub baths or swimming for 2 weeks after surgery. - Leave steri-strips (tape) in place until they fall off. Notify Physician If: - Uncontrolled pain - Fever > 100.5 degrees - Redness around incision - Any concerns Condition at time of discharge: Good Care Plan Discharge Patient: Goal: Pain is contolled Patient Instructions: see patient instructions see patient instructions peels excessively, notify your surgeon's office. 3.You may shower with the dressing in place, but do not submerge in water 4.Do not allow water to seep under the dressing, if it should seep under, remove the dressing and notify your surgeon. Notify Physician If: Call your Surgeon if you have: 1.Chest pain, difficulty breathing, fever>100.5 degrees, chills, heart rate >100, confusion, or persistent nausea/vomitting. 2.Severe pain, swelling, redness, or warmth in either of your legs. 3.During office hours, call [phone] 4. After hours, please call at [phone], and have the first press operator page your Surgeon IN THE EVENT OF AN EMERGENCY, seek medical care at the nearest Emergency Room Condition at time of discharge: Good Care Plan Discharge Patient: Goal: Understand discharge plan Patient Instructions: see patient instructions see patient instructions Plan of Care Discharge Date 02/28/14 2:00pm Disposition 01 DISCHARGED HOME, SELF-CARE Instructions/Education Provided Oxazepam Omeprazole Prescriptions See Medications Section Functional Status Query Response Date Recorded Physical Hygiene Self February 28, 2014 12:30pm Disabilities Visual February 28, 2014 12:30pm Devices Used Glasses February 28, 2014 12:30pm Dressing Self February 28, 2014 12:30pm Ambulation Self February 28, 2014 12:30pm Diet Self February 28, 2014 12:30pm Mental Status Alert February 28, 2014 12:30pm Disabilities Visual February 28, 2014 12:30pm Devices Used Glasses February 28, 2014 12:30pm Physical Hygiene Self February 28, 2014 12:30pm Dressing Self February 28, 2014 12:30pm Ambulation Self February 28, 2014 12:30pm Diet Self February 28, 2014 12:30pm Allergies, Adverse Reactions, Alerts Allergen Type Severity Reaction Status Last Updated Latex Allergy Mild dry red skin Active 02/27/14 SULFA Allergy Mild rash Active 02/27/14 Immunizations Name Given Type Hx Influenza Vaccination Y 2012 Historical Hx Pneumococcal Vaccination Y UNSURE OF DATE BUT BELIEVE IT WAS IN 2012 Historical Hx Influenza Vaccination Y 2012 Historical Vital Signs Acute Vital Signs Vital Response Date/Time Temperature (Fahrenheit) 98.2 deg F (96.8 - 99.1) Temperature (Calculated Celsius) 36.80038 degrees C (36.0 - 37.3) Temperature Source Temporal Pulse Rate (adult) 72 bpm (60 - 100) Respiratory Rate 16 breaths/min (10 - 20) O2 Sat by Pulse Oximetry 97 % (90 - 100) Oxygen Delivery Method Room Air Blood Pressure 131/69 mm Hg Blood Pressure Source Automatic Cuff Height 5 ft 6 in Weight 203 lb Body Mass Index 32.0 kg/m^2 Results [...] 4:55am 77 U/L N 38-126 Anion Gap February 28, 2014 4:33am 10 MEQ/L N 5-15 Aspartate Amino Transf (AST/SGOT) February 27, 2014 4:55am 24 U/L N 14-36 BUN/Creatinine Ratio February 28, 2014 4:33am 11 RATIO N 6-26 Basophils # (Auto) February 28, 2014 4:33am 0.0 T/MM3 N 0-0.2 Basophils (%) (Auto) February 28, 2014 4:33am 0.6 % N 0-2 Blood Urea Nitrogen February 28, 2014 4:33am 8.0 MG/DL N 7-17 Calcium Level February 28, 2014 4:33am 8.5 MG/DL N 8.4-10.2 Calculated Osmolality February 28, 2014 4:33am 266 MOSM/KG N 261-280 Carbon Dioxide Level February 28, 2014 4:33am 22 MEQ/L N 22-30 Chemistry Specimen Hemolysis February 28, 2014 4:33am < 15 0-25 0-25: No Hemolysis.26-70: Slight Hemolysis - can falsely elevate K and Urine Protein. 71-285: Moderate Hemolysis - can falsely elevate K, Troponin I, CA 19-9, PTH, CSF GLucose, and Urine Protein, and can falsely decrease Phenytoin. 286-999: Gross Hemolysis - can falsely elevate K, Troponin I, CA 19-9, PTH, CSF Glucose, and Urine Protine, and can falsely decrease Phenytoin. Recommend specimen recollection. Chloride Level February 28, 2014 4:33am 107 MEQ/L N 98-107 Creatinine February 28, 2014 4:33am 0.7 MG/DL N 0.7-1.2 Eosinophils # (Auto) February 28, 2014 4:33am 0.4 T/MM3 N 0-0.5 Eosinophils (%) (Auto) February 28, 2014 4:33am 5.9 % H 0-4 Free Thyroxine February 27, 2014 3:39pm 0.83 NG/DL N 0.78-2.19 COMMENT may use blood in lab Globulin February 27, 2014 4:55am 4.1 G/DL H 2.4-3.6 Glomerular Filtration Rate Calc February 28, 2014 4:33am 90 - Glucose Level February 28, 2014 4:33am 98 MG/DL N 65-110 Hematocrit February 28, 2014 4:33am 36.7 % N 36-46 Hemoglobin February 28, 2014 4:33am 12.2 GM/DL N 12-16 Icterus Index February 28, 2014 4:33am < 2 0-7 Immature Granulocyte # (Auto) February 28, 2014 4:33am 0.04 T/MM3 H 0.00- 0.03 Immature Granulocyte % (Auto) February 28, 2014 4:33am 0.6 % H 0.0-0.5 Lymphocytes # (Auto) February 28, 2014 4:33am 2.0 T/MM3 N 1-4.8 Lymphocytes (%) (Auto) February 28, 2014 4:33am 32.4 % N 23-45 Mean Corpuscular Hemoglobin February 28, 2014 4:33am 31.7 UUG N 26-34 Mean Corpuscular Hemoglobin Concent February 28, 2014 4:33am 33.2 GM/DL N 31-37 Mean Corpuscular Volume February 28, 2014 4:33am 95.3 UM3 N 80-100 Mean Platelet Volume February 28, 2014 4:33am 10.8 UM3 N 9.4-12.4 Monocytes # (Auto) February 28, 2014 4:33am 0.5 T/MM3 N 0-0.8 Monocytes (%) (Auto) February 28, 2014 4:33am 7.8 % N 0-9.0 Neutrophils # (Auto) February 28, 2014 4:33am 3.3 T/MM3 N 1.8-7.7 Neutrophils (%) (Auto) February 28, 2014 4:33am 52.7 % N 33-66 Platelet Count February 28, 2014 4:33am 209 T/MM3 N 130-400 Potassium Level February 28, 2014 4:33am 4.4 MEQ/L N 3.6-5 Prealbumin February 27, 2014 4:55am 48.6 MG/DL H 17.6-36.0 Prolactin February 27, 2014 4:55am 41.5 NG/ML - Normal Female (Non- ): 3.0-18.6 ng/ml;Males: 3.7-17.9 ng/ml RDW Standard Deviation February 28, 2014 4:33am 41.5 FL N 36.9-50.2 Red Blood Count February 28, 2014 4:33am 3.85 M/MM3 L 4.00-5.20 Sodium Level February 28, 2014 4:33am 139 MEQ/L N 134-144 Thyroid Stimulating Hormone (TSH) February 27, 2014 4:55am 6.66 MIU/L H 0.47-4.68 COMMENT maci Total Bilirubin February 27, 2014 4:55am 0.30 MG/DL N 0.20-1.30 Total Protein February 27, 2014 4:55am 8.2 G/DL N 6.3-8.2 Turbidity February 28, 2014 4:33am < 20 0-20 Vitamin B12 Level February 27, 2014 4:55am 406 PG/ML N 239-931 White Blood Count February 28, 2014 4:33am 6.3 T/MM3 N 4.5-11.0 Procedures No known history of procedures. Encounters Encounter Location Date/Time Discharged Inpatient [facility] 02/27/14 6:11am Recent Diagnosis Delirium tremens Alcohol abuse Alcohol withdrawal seizure HTN (hypertension) Depression Anxiety Obesity (BMI 30.0-34.9)
--- OUTSIDE RECORDS SUMMARY | 2016-09-30 15:42 | XMS REPORT | Referral Summary ---
Author Author [facility], [facility] Care Organization [facility] Address Unknown Phone Unavailable Care Team Providers Care Wire Inspector Name Role Phone Bandar Adams Primary Care Physician [phone] Encounter Date(s): 05/23/16 - 05/23/16 [facility], [address] [place] [address] Discharge Diagnosis: Acute bronchitis Discharge Diagnosis: Cough Discharge Diagnosis: Abnormal blood sugar Discharge Diagnosis: Hyperlipidemia Discharge Diagnosis: Anxiety disorder Discharge Diagnosis: Benign essential hypertension (disorder) Discharge Diagnosis: Acute vaginitis Discharge Disposition: -Home or Self Care Attending Physician: Erik Lomeli MD Admitting Physician: Erik Lomeli MD Vital Signs Most recent to 1 oldest [Reference Range]: Temperature Tympanic 36.8 degC [36.6-38.1 degC] (05/23/16 8:34 AM) Peripheral Pulse 95 bpm Rate [60-100 bpm] (05/23/16 8:34 AM) Blood Pressure 158/94 mmHg [90-140/60-90 mmHg] *HI* (05/23/16 8:34 AM) SpO2 98 % (05/23/16 8:34 AM) Problem List Condition Effective Dates Status Health Status Informant Alcohol abuse Active (disorder)(Confirmed ) Alcohol Active abuse(Confirmed) Anal Active patient fistula(Confirmed) Anxiety state Resolved (finding)(Confirmed) Benign essential Active hypertension (disorder)(Confirmed ) Abnormal blood Active sugar(Confirmed) Depression(Confirmed Active ) Diverticulitis(Confi Active rmed) Anxiety Active disorder(Confirmed) Hyperlipidemia(Confi Active rmed) hypertension(Confirm Active ed) Obesity(Confirmed) Active patient Panic [...] 0 Refill(s) Start Date: 06/28/15 Status: Ordered Cipro 500 mg oral tablet 500 mg 1 tabs, Oral, BID, # 20 tabs, 0 Refill(s), Pharmacy: [facility] # [id number], 1 tabs Oral BID Start Date: 05/23/16 Status: Ordered Combivent Respimat CFC free 20 mcg-100 mcg/inh inhalation aerosol See Instructions, INHALE ONE INHALATION BY MOUTH FOUR TIMES A DAY, # 4 unknown unit, eRx: [facility] #[id number], INHALE ONE INHALATION BY MOUTH FOUR TIMES A DAY Start Date: 05/29/15 Status: Ordered Diflucan 200 mg oral tablet 200 mg 1 tabs, Oral, Daily, X 10 days, # 10 tabs, 0 Refill(s), Pharmacy: [facility] #[id number], 1 tabs Oral Daily,x10 days Start Date: 05/23/16 Stop Date: 06/02/16 Status: Ordered meloxicam 15 mg oral tablet See Instructions, TAKE ONE TABLET BY MOUTH DAILY, # 30 tabs, eRx: [facility] #[id number], TAKE ONE TABLET BY MOUTH DAILY Start Date: 06/10/15 Status: Ordered meloxicam 15 mg oral tablet See Instructions, TAKE ONE TABLET BY MOUTH DAILY, # 30 tabs, 0 Refill(s), Pharmacy: [facility] #[id number], TAKE ONE TABLET BY MOUTH DAILY Start Date: 10/23/15 Status: Ordered PARoxetine 40 mg oral tablet See Instructions, TAKE ONE TABLET BY MOUTH DAILY, # 30 tabs, 2 Refill(s), eRx: [facility] #[id number], TAKE ONE TABLET BY MOUTH DAILY Start Date: 03/03/16 Status: Ordered predniSONE 20 mg oral tablet 20 mg 1 tabs, Oral, Daily, X 10 days, # 10 tabs, 0 Refill(s), Pharmacy: [facility] #[id number], 1 tabs Oral Daily,x10 days Start Date: 05/23/16 Stop Date: 06/02/16 Status: Ordered ProAir RespiClick 90 mcg/inh inhalation powder 1 puffs, Inhalation, q4hr, as needed, # 1 Each, 0 Refill(s), Pharmacy: [facility] #[id number] Start Date: 05/23/16 Status: Ordered topiramate 50 mg oral tablet [...] Extracted from: Title: Ambulatory Patient Education Author: Erik Lomeli MD Date: Allergy Allergies An allergy is an abnormal reaction to a substance by the body's defense system ( immune system). Allergies can develop at any age. WHAT CAUSES ALLERGIES? An allergic reaction happens when the immune system mistakenly reacts to a normally harmless substance, called an allergen, as if it were harmful. The immune system releases antibodies to fight the substance. Antibodies eventually release a chemical called histamine into the bloodstream. The release of histamine is meant to protect the body from infection, but it also causes discomfort. An allergic reaction can be triggered by: Eating an allergen. Inhaling an allergen. Touching an allergen. WHAT TYPES OF ALLERGIES ARE THERE? There are many types of allergies. Common types include: Seasonal allergies. People with this type of allergy are usually allergic to substances that are only present during certain seasons, such as molds and pollens. Food allergies. Drug allergies. Insect allergies. Animal dander allergies. WHAT ARE SYMPTOMS OF ALLERGIES? Possible allergy symptoms include: Swelling of the lips, face, tongue, mouth, or throat. Sneezing, coughing, or wheezing. Nasal congestion. Tingling in the mouth. Rash. Itching. Itchy, red, swollen areas of skin (hives). Watery eyes. Vomiting. Diarrhea. Dizziness. Lightheadedness. Fainting. Trouble breathing or swallowing. Chest tightness. Rapid heartbeat. HOW ARE ALLERGIES DIAGNOSED? Allergies are diagnosed with a medical and family history and one or more of the following: Skin tests. Blood tests. A food diary. A food diary is a record of all the foods and drinks you have in a day and of all the symptoms you experience. The results of an elimination diet. An elimination diet involves eliminating foods from your diet and then adding them back in one by one to find out if a certain food causes an allergic reaction. HOW ARE ALLERGIES TREATED? There is no cure for allergies, but allergic reactions can be treated with medicine. Severe reactions usually need to be treated at a hospital. HOW CAN REACTIONS BE PREVENTED? The best way to prevent an allergic reaction is by avoiding the substance you are allergic to. Allergy shots and medicines can also help prevent reactions in some cases. People with severe allergic reactions may be able to prevent a life- threatening reaction called anaphylaxis with a medicine given right after exposure to the allergen. This information is not intended to replace advice given to you by your health care provider. Make sure you discuss any questions you have with your health care provider. Document Released: 09/21/2003 Document Revised: 07/19/2015 Document Reviewed: [employer] Patient Education 2016 [employer] No follow up information was provided. Extracted from: Title: Office Visit Note Author: Erik Lomeli MD Date: 05/23/16 Assessment/Plan Acute bronchitis Cipro 500mg po bid forten was requested and worked for her previously. Prednisone 20 mg po daily for ten days. Samples of the new medication were provided as a courtesy. Side effects were discussed and follow up was recommended. Voucher for albuterol mdi two puffs q6 prn was given as a courtesy. A work/school note was offered and deferred by the patient. F/U with Dr. MACK. CXR pending on Wednesday. To [facility] if worse or can't wait. Acute vaginitis Diflucan 200mg po daily for ten days while on abx per request. Anxiety disorder This issue was reviewed, appears stable, and current therapy continued except as mentioned. Appropriate lab was reviewed from the most recent appropriate entry and lab was ordered if needed in the cpoe/nursing orders, and follow up recommended generally in 90 days and no later then six months. Benign essential hypertension (disorder) This issue was reviewed, appears stable, and current therapy continued except as mentioned. Appropriate lab was reviewed from the most recent appropriate entry and lab was ordered if needed in the cpoe/nursing orders, and follow up recommended generally in 90 days and no later then six months. The patient had an elevated blood pressure reading and is to monitor their bp and call with a report if consistently > 140/90. Cough See above. CXR pending.
--- OUTSIDE RECORDS SUMMARY | 2016-09-30 15:42 | XMS REPORT | Referral Summary ---
Author Author [facility], [facility] Organization [facility] Address Unknown Phone Unavailable Care Team Providers Care Case Management Assistant Name Role Phone Bandar Adams Primary Care Physician [phone] Encounter VC Date(s): 04/05/15 - 04/05/15 [facility] [place] [address]- Discharge Diagnosis: CAP (community acquired pneumonia) Discharge Diagnosis: CAP (community acquired pneumonia) Discharge Disposition: 01-Home or Self Care Attending Physician: Bandar Adams DO Admitting Physician: Bandar Adams DO Vital Signs Most recent to 1 oldest [Reference Range]: Temperature Tympanic 36.8 degC [36.6-38.1 degC] (04/05/15 8:02 AM) Peripheral Pulse 106 bpm Rate [60-100 bpm] *HI* (04/05/15 8:02 AM) Blood Pressure 116/78 mmHg [90-140/60-90 mmHg] (04/05/15 8:02 AM) SpO2 98 % (04/05/15 8:02 AM) Problem List Condition Effective Dates Status [...] QID, # 1 inhalers, 1 Refill(s), Pharmacy: [facility] #[id number] Start Date: 04/04/15 Status: Ordered Combivent Respimat CFC free 20 mcg-100 mcg/inh inhalation aerosol See Instructions, INHALE ONE INHALATION BY MOUTH FOUR TIMES A DAY, # 4 unknown unit, eRx: [facility] #[id number], INHALE ONE INHALATION BY MOUTH FOUR TIMES A DAY Start Date: 05/29/15 Status: Ordered meloxicam 15 mg oral tablet See Instructions, TAKE ONE TABLET BY MOUTH DAILY, # 30 tabs, eRx: [facility] #[id number], TAKE ONE TABLET BY MOUTH DAILY Start Date: 06/10/15 Status: Ordered Naprosyn 500 mg oral tablet See Instructions, TAKE ONE TABLET BY MOUTH TWICE A DAY, # 60 tabs, 1 Refill(s), eRx: [facility] #[id number], TAKE ONE TABLET BY MOUTH TWICE A DAY Start Date: 05/14/15 Status: Ordered Paxil 40 mg oral tablet See Instructions, TAKE ONE TABLET BY MOUTH DAILY, # 30 tabs, 5 Refill(s), eRx: [facility] #[id number], TAKE ONE TABLET BY MOUTH DAILY Start [...] 22 Assessment and Plan Extracted from: Title: CAP Author: Bandar Adams DO Date: 04/05/15 Assessment/Plan CAP (community acquired pneumonia) Discontinue Zithromax. Continue with Combivent one puff every 6 hours. Another gram of Rocephin was given IM today. Levaquin 750 mg daily for 7 days. Follow-up in a week for reevaluation and repeat chest x-ray. Continue with smoking cessation. Ordered: levofloxacin, 750 mg 1 tabs, Oral, q24hr, X 7 days, # 7 tabs, 0 Refill(s), Pharmacy: [facility] #[id number], 1 tabs Oral q24hr,x7 days Office Visit Level 4 Est 70927
--- OUTSIDE RECORDS SUMMARY | 2016-09-30 15:42 | XMS REPORT | Referral Summary ---
Author Author [facility], [facility] Organization [facility], [facility] Address Unknown Phone Unavailable Care Team Providers Care Apprentice Pattern Maker Name Role Phone Bandar Adams Primary Care Physician [phone] Encounter VC Date(s): 08/28/15 - 08/28/15 [facility], [facility] [address] [place] [address] [place] [address]- Discharge Diagnosis: History of diverticulitis of colon Discharge Diagnosis: Diarrhea Discharge Diagnosis: Abdominal cramping Discharge Diagnosis: Change in bowel habits Discharge Disposition: 01-Home or Self Care Attending Physician: Saeed Taylor MD Admitting Physician: Saeed Taylor MD Referring Physician: Bandar Adams DO Vital Signs Most recent to 1 oldest [Reference Range]: Temperature Tympanic 36.7 degC [36.6-38.1 degC] (08/28/15 1:56 PM) Blood Pressure 126/82 mmHg [90-140/60-90 mmHg] (08/28/15 1:56 PM) Problem List Condition Effective Dates Status [...] QID, # 1 inhalers, 1 Refill(s), Pharmacy: [facility] #[id number] Start Date: 04/04/15 Status: Ordered Combivent Respimat CFC free 20 mcg-100 mcg/inh inhalation aerosol See Instructions, INHALE ONE INHALATION BY MOUTH FOUR TIMES A DAY, # 4 unknown unit, eRx: [facility] #[id number], INHALE ONE INHALATION BY MOUTH FOUR TIMES A DAY Start Date: 05/29/15 Status: Ordered meloxicam 15 mg oral tablet See Instructions, TAKE ONE TABLET BY MOUTH DAILY, # 30 tabs, eRx: [facility] #[id number], TAKE ONE TABLET BY MOUTH DAILY Start Date: 06/10/15 Status: Ordered Naprosyn 500 mg oral tablet See Instructions, TAKE ONE TABLET BY MOUTH TWICE A DAY, # 60 tabs, 1 Refill(s), eRx: [facility] #[id number], TAKE ONE TABLET BY MOUTH TWICE A DAY Start Date: 05/14/15 Status: Ordered Paxil 40 mg oral tablet See Instructions, TAKE ONE TABLET BY MOUTH DAILY, # 30 tabs, 5 Refill(s), eRx: [facility] #[id number], TAKE ONE TABLET BY MOUTH DAILY Start Date: 07/01/15 Status: Ordered topiramate 50 mg oral tablet 50 mg 1 tabs, Oral, QID, 0 Refill(s) Start Date: 02/06/15 Status: Ordered Results No data available for this section Immunizations Vaccine Date Refusal Reason pneumococcal 23-polyvalent vaccine 10/26/13 Procedures Procedure Date Related Diagnosis Body Site Fistulectomy Anal1 02/07/15 Colonoscopy2 2000 Colonoscopy 1998 Hysterectomy 1990 Breast augmentation Tonsillectomy Tooth extraction3 1auto-populated from documented surgical case 2diverticulitis 3WISDOM TEETH Social History Social History Type Response Smoking Status Current every day smoker; Type: Cigarettes; Tobacco use per day: Pack; Number of years: 22 Assessment and Plan No data available for this section
--- OUTSIDE RECORDS SUMMARY | 2016-09-30 15:42 | XMS REPORT | Referral Summary ---
Author Author [facility], [facility] Organization [facility] Address Unknown Phone Unavailable Care Team Providers Care Survey Researcher Name Role Phone Bandar Adams Primary Care Physician [phone] Encounter VC Date(s): 04/04/15 - 04/04/15 [facility] [address] [place] [address] Discharge Diagnosis: Community acquired pneumonia Discharge Diagnosis: Acute bacterial bronchitis Discharge Diagnosis: Alcoholism Discharge Diagnosis: Anxiety disorder Discharge Diagnosis: Continuous tobacco abuse Discharge Disposition: 01-Home or Self Care Attending Physician: Bandar Adams DO Admitting Physician: Bandar Adams DO Vital Signs Most recent to 1 oldest [Reference Range]: Temperature Tympanic 35.8 degC [36.6-38.1 degC] *LOW* (04/04/15 2:05 PM) Peripheral Pulse 84 bpm Rate [60-100 bpm] (04/04/15 2:05 PM) Blood Pressure 125/88 mmHg [90-140/60-90 mmHg] (04/04/15 2:05 PM) SpO2 97 % (04/04/15 2:05 PM) Problem List Condition Effective Dates Status [...] QID, # 1 inhalers, 1 Refill(s), Pharmacy: [facility] #[id number] Start Date: 04/04/15 Status: Ordered Combivent Respimat CFC free 20 mcg-100 mcg/inh inhalation aerosol See Instructions, INHALE ONE INHALATION BY MOUTH FOUR TIMES A DAY, # 4 unknown unit, eRx: [facility] #[id number], INHALE ONE INHALATION BY MOUTH FOUR TIMES A DAY Start Date: 05/29/15 Status: Ordered meloxicam 15 mg oral tablet See Instructions, TAKE ONE TABLET BY MOUTH DAILY, # 30 tabs, eRx: [facility] #[id number], TAKE ONE TABLET BY MOUTH DAILY Start Date: 06/10/15 Status: Ordered Naprosyn 500 mg oral tablet See Instructions, TAKE ONE TABLET BY MOUTH TWICE A DAY, # 60 tabs, 1 Refill(s), eRx: [facility] #[id number], TAKE ONE TABLET BY MOUTH TWICE A DAY Start Date: 05/14/15 Status: Ordered Paxil 40 mg oral tablet See Instructions, TAKE ONE TABLET BY MOUTH DAILY, # 30 tabs, 5 Refill(s), eRx: [facility] #[id number], TAKE ONE TABLET BY MOUTH DAILY Start [...] 22 Assessment and Plan Extracted from: Title: RML CAP and anxiety Author: Bandar Adams DO Date: 04/04/15 Assessment/Plan Acute bacterial bronchitis 1. Following initial assessment the patient was treated with DuoNeb by nebulizer, following treatment she had some improvement in air movement and was able to breathe with more ease. 2. She was dismissed with a nebulizer for Combivent, one puff every 6 hours for a month. 3. Follow-up if worsening respiratory presentation. Ordered: Admin set, with small volume nonfiltered pneumatic nebulizer, disposable [id number] Office Visit Level 5 Est 59289 Alcoholism 1. Recommended treatment for alcoholism with the intent for alcohol cessation. 2. Patient voiced understanding . Ordered: Office Visit Level 5 Est 35276 Anxiety disorder 1. At this time I am uncertain whether her anxiety is secondary to alcohol withdrawal or the primary source which she treats with alcohol consumption. 2. If she is needing to be on alprazolam on a regular basis, I suggest that she needs to be on an SSRI instead of using an agent with short acting mechanism and high incidence of dependency. Patient voiced understanding. Ordered: Office Visit Level 5 Est 73468 Community acquired pneumonia Pathophysiology of this presentation, and differential diagnosis, discussed in detail with the patient. All questions were answered. 1. Tobacco cessation recommended. 2. Breathing treatment with Combivent as above. 3. Continue with Zithromax as previous. 4. She was given 1 g of Rocephin today and observed for 30 minutes prior to dismissal without any adverse effects. 5. Recommended following up tomorrow for reevaluation. If she still runs fevers with chills and body aches tonight and we may consider giving a second dose of Rocephin tomorrow. 6. Patient voiced understanding. Ordered: Office Visit Level 5 Est 51929 Continuous tobacco abuse Tobacco cessation recommended. Over an hour was spent [id number] with this patientto include initial evaluation, evaluation of the breathing treatment, injectionand evaluation prior to dismissal. Orders: ipratropium-albuterol, 1 puffs, Inhalation, QID, # 1 inhalers, 1 Refill(s), Pharmacy: [facility] #[id number]
--- OUTSIDE RECORDS SUMMARY | 2016-09-30 15:42 | XMS REPORT | Referral Summary ---
Author Author [facility], [facility] Organization [facility] Address Unknown Phone Unavailable Care Team Providers Care Pile Driver Operator Helper Name Role Phone Kimberly Tejeda Primary Care Physician [phone] Encounter Date(s): 05/10/15 - 05/10/15 [facility], [address] [place] [address] [place] Discharge Diagnosis: [...] tabs, Oral, BID, as needed for anxiety, [facility], # 30 tabs, 0 Refill(s) Start Date: 02/14/15 Status: Ordered Combivent Respimat CFC free 20 mcg-100 mcg/inh inhalation aerosol 1 puffs, Inhalation, QID, # 1 inhalers, 1 Refill(s), Pharmacy: [facility] #[id number] Start Date: 04/04/15 Status: Ordered meloxicam 15 mg oral tablet 15 mg 1 tabs, Oral, Daily, # 30 tabs, 0 Refill(s), Pharmacy: [id number], 1 tabs Oral Daily Start Date: 04/01/15 Status: Ordered Naprosyn 500 mg oral tablet 500 mg 1 tabs, Oral, BID, # 60 tabs, 0 Refill(s), Pharmacy: [facility] # [id number], 1 tabs Oral BID Start Date: 04/18/15 Status: Ordered Paxil 30 mg oral tablet 30 mg 1 tabs, Oral, Daily, # 30 tabs, 1 Refill(s), Pharmacy: [facility] # [id number], 1 tabs Oral Daily,x30 days Start Date: 05/10/15 Stop Date: 07/09/15 Status: Ordered topiramate 50 mg oral tablet [...] Visit Note Author: Bandar Adams DO Date: 05/10/15 Assessment/Plan Alcohol abuse, Alcohol abuse, uncomplicated Pathophysiology of this presentation, and differential diagnosis, discussed in detail with the patient. All questions were answered. 1. I suspect her alcoholism is contributing to her increased symptoms of anxiety. 2. Recommended seeking treatment for alcoholism and alcohol cessation. 3. Patient voiced understanding. Ordered: Office Visit Level 5 Est 39217 Anxiety disorder, Generalized anxiety disorder 1. Recommendation [...] management. Ordered: Office Visit Level 5 Est 90063 Cough 1. The coughing is likely secondary to chronic smoking. Recommended tobacco cessation, patient voiced understanding. 2. Repeat chest x-ray today was for normal finding. The pneumonia on the right middle lobe has cleared completely. 3. Again tobacco cessation was recommended. Ordered: Office Visit Level 5 Est 82801 XR Chest 2 Views Heart palpitations, Palpitations 1. Cardiac auscultation was for normal S1 and S2. 2. EKG is for normal sinus rhythm with a rate of 80, normal DC and QRS. No Q waves, ST segment elevation or T-wave changes noted. 3. Her sensation of palpitation is likely secondary to alcohol withdrawal and anxiety. 4. If she has worsening chest discomfort or or cardiac concerns then she was advised to follow-up in the emergency department. Patient voiced understanding. More than 45 minutes was spent [id number] with this patienttoday. Clinical decision making was complex. Ordered: Office Visit Level 5 Est 21788
--- OUTSIDE RECORDS SUMMARY | 2016-09-30 15:43 | XMS REPORT | Referral Summary ---
Author Author [facility], [facility] Organization [facility] Address Unknown Phone Unavailable Care Team Providers Care Stage Set Designer Name Role Phone Bandar Adams Primary Care Physician [phone] Encounter VC Date(s): 04/12/15 - 04/12/15 [facility] [place] [address] [place] Discharge Diagnosis: [...] QID, # 1 inhalers, 1 Refill(s), Pharmacy: [facility] #[id number] Start Date: 04/04/15 Status: Ordered Combivent Respimat CFC free 20 mcg-100 mcg/inh inhalation aerosol See Instructions, INHALE ONE INHALATION BY MOUTH FOUR TIMES A DAY, # 4 unknown unit, eRx: [facility] #[id number], INHALE ONE INHALATION BY MOUTH FOUR TIMES A DAY Start Date: 05/29/15 Status: Ordered meloxicam 15 mg oral tablet See Instructions, TAKE ONE TABLET BY MOUTH DAILY, # 30 tabs, eRx: [facility] #[id number], TAKE ONE TABLET BY MOUTH DAILY Start Date: 06/10/15 Status: Ordered Naprosyn 500 mg oral tablet See Instructions, TAKE ONE TABLET BY MOUTH TWICE A DAY, # 60 tabs, 1 Refill(s), eRx: [facility] #[id number], TAKE ONE TABLET BY MOUTH TWICE A DAY Start Date: 05/14/15 Status: Ordered Paxil 40 mg oral tablet See Instructions, TAKE ONE TABLET BY MOUTH DAILY, # 30 tabs, 5 Refill(s), eRx: [facility] #[id number], TAKE ONE TABLET BY MOUTH DAILY Start [...] Title: Office Visit Note Author: Bandar Adams Date: 04/12/15 Assessment/Plan Alcoholism /alcohol abuse 1. Cessation recommended. 2. Patient voiced understanding but does not seem interested at this time. Ordered: Office Visit Level 4 Est 02875 Smoking and tobacco use cessation counseling visit 3 to 10 minutes [id number] Right middle lobe pneumonia 1. Continue Combivent [...] presentation. Ordered: Office Visit Level 4 Est 65248 Tobacco abuse counseling 1. Cessation recommended,she will try to quit on her own. Ordered: Office Visit Level 4 Est 95529 Smoking and tobacco use cessation counseling visit 3 to 10 minutes [id number] Orders: fluconazole, 150 mg 1 tabs, Oral, qWeek, # 2 tabs, 0 Refill(s), Pharmacy: [facility] #[id number], 1 tabs Oral qWeek predniSONE, 20 mg 1 tabs, Oral, Daily, X 5 days, # 5 tabs, 0 Refill(s), Pharmacy: [facility] #[id number], 1 tabs Oral Daily,x5 days XR Chest 2 Views
--- OUTSIDE RECORDS SUMMARY | 2016-09-30 15:43 | XMS REPORT | Referral Summary ---
Author Author [facility], [facility] Medicine Organization [facility] Address Unknown Phone Unavailable Care Team Providers Care Bag Liner Name Role Phone Bandar Adams Primary Care Physician [phone] Encounter VC Date(s): 04/09/16 - 04/09/16 [facility] [place] [place] [address] Discharge Disposition: 01-Home or Self Care Attending Physician: Bandar Adams DO Admitting Physician: Bandar Adams DO Vital Signs Most recent to 1 oldest [Reference Range]: Temperature Tympanic 36.8 degC [36.6-38.1 degC] (04/09/16 2:24 PM) Peripheral Pulse 82 bpm Rate [60-100 bpm] (04/09/16 2:24 PM) Blood Pressure 122/78 mmHg [90-140/60-90 mmHg] (04/09/16 2:24 PM) SpO2 98 % (04/09/16 2:24 PM) Problem List Condition Effective Dates Status [...] A DAY, # 4 unknown unit, eRx: [facility] #[id number], INHALE ONE INHALATION BY MOUTH FOUR TIMES A DAY Start Date: 05/29/15 Status: Ordered meloxicam 15 mg oral tablet See Instructions, TAKE ONE TABLET BY MOUTH DAILY, # 30 tabs, eRx: [facility] #[id number], TAKE ONE TABLET BY MOUTH DAILY Start Date: 06/10/15 Status: Ordered meloxicam 15 mg oral tablet See Instructions, TAKE ONE TABLET BY MOUTH DAILY, # 30 tabs, 0 Refill(s), Pharmacy: [facility] #[id number], TAKE ONE TABLET BY MOUTH DAILY Start Date: 10/23/15 Status: Ordered PARoxetine 40 mg oral tablet See Instructions, TAKE ONE TABLET BY MOUTH DAILY, # 30 tabs, 2 Refill(s), eRx: [facility] #[id number], TAKE ONE TABLET BY MOUTH DAILY Start [...]
--- OUTSIDE RECORDS SUMMARY | 2016-09-30 15:43 | XMS REPORT | Referral Summary ---
Author Organization Unknown Address Unknown Phone Unavailable Care Team Providers Care Six Color Press Operator Name Role Phone Kimberly Tejeda Primary Care Physician [phone] Encounter VC Date(s): 08/17/14 - 08/17/14 [facility], [address] [place] [address]- Discharge Diagnosis: Alcohol abuse (disorder) Discharge Diagnosis: Left sided numbness Discharge Disposition: Home or Self Care Attending Physician: Dank Tejeda MD Admitting Physician: Dank Tejeda MD Vital Signs Most recent to 1 oldest [Reference Range]: Temperature Oral 36.8 degC [35.8-37.3 degC] (08/17/14 11:03 AM) Peripheral Pulse 88 bpm Rate [60-100 bpm] (08/17/14 11:03 AM) Respiratory Rate 16 br/min [14-20 br/min] (08/17/14 11:03 AM) Blood Pressure 130/80 mmHg [90-140/60-90 mmHg] (08/17/14 11:03 AM) Most recent to 1 oldest [Reference Range]: SpO2 98 % (08/17/14 11:03 AM) Problem List Condition Effective Dates Status Health Status Informant Alcohol Active abuse(Confirmed) Alcohol abuse Active (disorder)(Confirmed ) Anxiety Active disorder(Confirmed) Anxiety state Active (finding)(Confirmed) Benign essential Active hypertension (disorder)(Confirmed ) Depression(Confirmed Active ) Diverticulitis(Confi Active rmed) hypertension(Confirm Active ed) Obesity(Confirmed) Active patient Panic Active disorder(Confirmed) Panic disorder Active without agoraphobia (disorder)(Confirmed ) Psoriasis(Confirmed) Active Allergies, Adverse Reactions, Alerts Substance Reaction Severity Status Latex Active sulfanilamide topical Active Medications ALPRAZolam 0.5 mg oral tablet 1 tabs, Oral, BID, as needed for anxiety, # 30 tabs, 0 Refill(s) Start Date: 08/15/14 Status: Ordered Aspirin Low Strength 81 mg, Oral, Daily, 0 Refill(s) Start Date: 03/01/14 Status: Ordered betamethasone dipropionate topical Topical, BID, 0 Refill(s) Start Date: 01/19/14 Status: Ordered Dovonex 0.005% topical cream daksha, Topical, BID, 0 Refill(s) Start Date: 01/19/14 Status: Ordered multivitamin 1 tabs, Oral, Daily, 0 Refill(s) Start Date: 03/01/14 Status: Ordered oxazepam 15 mg oral capsule See Instructions, Take one pill 6 x a day for 3 days and then 5x a day for 3 days and then 4x a day for 3 days and 3x a day for 3 days and 2x a day for 3 days and then once a day for 3 days then stop, # 63 caps, 0 Refill(s) Special Instructions: Take one pill 6 x a day for 3 days and then 5x a day for 3 days and then 4x a day for 3 days and 3x a day for 3 days and 2x a day for 3 days and then once a day for 3 days then stop Start Date: 08/17/14 Stop Date: 09/04/14 Status: Ordered Valtrex 500 mg oral tablet 1 tabs, Oral, q12hr, 0 Refill(s) Start Date: 01/19/14 Status: Ordered Zestril 10 mg oral tablet 1 tabs, Oral, Daily, # 90 tabs, 3 Refill(s), Pharmacy: [id number], 1 tabs Oral Daily,x90 days Start Date: 08/17/14 Stop Date: 08/12/15 Status: Ordered Results No data available for this section Immunizations Vaccine Date Refusal Reason pneumococcal 13-valent conjugate vaccine 10/26/13 Procedures Procedure Date Related Diagnosis Body Site Colonoscopy 2001 Colonoscopy 1998 Hysterectomy 1990 Tonsillectomy Social History Social History Type Response Smoking Status Current every day smoker Assessment and Plan Extracted from: Title: Office Visit Note Author: Dank Tejeda MD Date: 08/17/14 Assessment/Plan Alcohol abuse (disorder) Left sided numbness Plan:I am placing you on Serax for alcohol withdrawal. I'm going to see if we can set you up to see a neurologist. I had ordered an MRI for today. We reviewed that MRI which was normal. I had the radiologist call me this morning and give me a verbal report. There was no signs of any previous stroke or vascular problems. I think these could be either seizures or atypical migraines. Orders: lisinopril, 1 tabs, Oral, Daily, # 90 tabs, 3 Refill(s), Pharmacy: [id number], 1 tabs Oral Daily,x90 days oxazepam, See Instructions, Take one pill 6 x a day for 3 days and then 5x a day for 3 days and then 4x a day for 3 days and 3x a day for 3 days and 2x a day for 3 days and then once a day for 3 days then stop, # 63 caps, 0 Refill(s) MRI Brain w/ Contrast
--- OUTSIDE RECORDS SUMMARY | 2016-09-30 15:43 | XMS REPORT | Referral Summary ---
Author Author [facility] Surgery Organization [facility] Address Unknown Phone Unavailable Care Team Providers Care Radiation Technician Name Role Phone Bandar Adams Primary Care Physician [phone] Encounter Date(s): 01/16/15 - 01/16/15 [facility] [address] [place], [place] [address] Discharge Diagnosis: Anal fistula Discharge Disposition: 01-Home or Self Care Attending Physician: Rigoberto Cartagena MD Admitting Physician: Rigoberto Cartagena MD Referring Physician: José Manuel Engle MD Vital Signs Most recent to 1 oldest [Reference Range]: Blood Pressure 128/78 mmHg [90-140/60-90 mmHg] (01/16/15 1:45 PM) Problem List Condition Effective Dates Status [...] QID, # 1 inhalers, 1 Refill(s), Pharmacy: [facility] #[id number] Start Date: 04/04/15 Status: Ordered Combivent Respimat CFC free 20 mcg-100 mcg/inh inhalation aerosol See Instructions, INHALE ONE INHALATION BY MOUTH FOUR TIMES A DAY, # 4 unknown unit, eRx: [facility] #[id number], INHALE ONE INHALATION BY MOUTH FOUR TIMES A DAY Start Date: 05/29/15 Status: Ordered meloxicam 15 mg oral tablet See Instructions, TAKE ONE TABLET BY MOUTH DAILY, # 30 tabs, eRx: [facility] #[id number], TAKE ONE TABLET BY MOUTH DAILY Start Date: 06/10/15 Status: Ordered Naprosyn 500 mg oral tablet See Instructions, TAKE ONE TABLET BY MOUTH TWICE A DAY, # 60 tabs, 1 Refill(s), eRx: [facility] #[id number], TAKE ONE TABLET BY MOUTH TWICE A DAY Start Date: 05/14/15 Status: Ordered Paxil 40 mg oral tablet See Instructions, TAKE ONE TABLET BY MOUTH DAILY, # 30 tabs, 5 Refill(s), eRx: [facility] #[id number], TAKE ONE TABLET BY MOUTH DAILY Start [...] Extracted from: Title: Ambulatory Patient Education Author: Maricruz Magallanes LPN Date: 01/16/15 Family Medicine Anal Fistula An anal fistula is an abnormal tunnel that develops between the bowel and skin near the outside of the anus, where feces comes out. The anus has a number of tiny glands that make lubricating fluid. Sometimes these glands can become plugged and infected. This may lead to the development of a fluid-filled pocket (abscess ). An anal fistula often develops after this infection or abscess. It is nearly always caused by a past or current anal abscess. CAUSES Though an anal fistula is almost always caused by a past or current anal abscess , other causes can include: A complication of surgery. Trauma to the rectal area. Radiation to the area. Other medical conditions or diseases, such as: Chronic inflammatory bowel disease, such as Crohn disease or ulcerative colitis. Colon or rectal cancer. Diverticular disease, such as diverticulitis. A sexually transmitted disease, such as gonorrhea, chlamydia, or syphilis. An HIV infection or AIDS. SYMPTOMS Throbbing or constant pain that may be worse when sitting. Swelling or irritation around the anus. Drainage of pus or blood from an opening near the anus. Pain with bowel movements. Fever or chills. DIAGNOSIS Your caregiver will examine the area to find the openings of the anal fistula and the fistula tract. The external opening of the anal fistula may be seen during a physical examination. Other examinations that may be performed include : Examination of the rectal area with a gloved hand (digital rectal exam ). Examination with a probe or scope to help locate the internal opening of the fistula. Injection of a dye into the fistula opening. X-rays can be taken to find the exact location and path of the fistula. An MRI or ultrasound of the anal area. Other tests may be performed to find the cause of the anal fistula. TREATMENT The most common treatment for an anal fistula is surgery. There are different surgery options depending on where your fistula is located and how complex the fistula is. Surgical options include: A fistulotomy. This surgery involves opening up the whole fistula and draining the contents inside to promote healing. Seton placement. A silk string (seton ) is placed into the fistula during a fistulotomy to drain any infection to promote healing. Advancement flap procedure. Tissue is removed from your rectum or the skin around the anus and is attached to the opening of the fistula. Bioprosthetic plug. A cone-shaped plug is made from your tissue and is used to block the opening of the fistula. Some anal fistulas do not require surgery. A fibrin glue is a non-surgical option that involves injecting the glue to seal the fistula. You also may be prescribed an antibiotic medicine to treat an infection. HOME CARE INSTRUCTIONS Take your antibiotics as directed. Finish them even if you start to feel better. Only take [id number]-[id number] or prescription medicines as directed by your caregiver.Use a stool softener or laxative, if recommended. Eat a high-fiber diet to help avoid constipation or as directed by your caregiver. Drink enough water to keep your urine clear or pale yellow. A warm sitz bath may be soothing and help with healing. You may take warm sitz baths for 1520 minutes, 34 times a day to ease pain and discomfort. Follow excellent hygiene to keep the anal area as clean and dry as possible. Use wet toilet paper or moist towelettes after each bowel movement. SEEK MEDICAL CARE IF: You have increased pain not controlled with medicines. SEEK IMMEDIATE MEDICAL CARE IF: You have severe, intolerable pain. You have new swelling, redness, or discharge around the anal area. You have tenderness or warmth around the anal area. You have chills or diarrhea. You have severe problems urinating or having a bowel movement. You have a fever or persistent symptoms for more than 23 days. You have a fever and your symptoms suddenly get worse. MAKE SURE YOU: Understand these instructions. Will watch your condition. Will get help right away if you are not doing well or get worse. Document Released: 06/10/2009 Document Revised: 06/14/2013 Document Reviewed: [facility] Patient Information 2014 [employer]. No follow up information was provided. Extracted from: Title: Surgery Office Visit Note Author: Los Gao MD Date: 01/16/15 Assessment/Plan 49 year old female with an anal fistula - Will schedule her for an examine under anesthesiawithlikely fistulotomy. - She has external hemorrhoids, but after discussion with Dr. Cartagena, she reached a decision to not remove these at this time.May elect to have these removed at a later date. - Risks, benefits, and indications to the procedure were discussed with her. She wishes to proceed. Will schedule at her earliest convenience. I have physically seen and examined the patient. I have discussed the patient with the Resident/SOCIAL INSURANCE ADMINISTRATOR/PA/RN/PharmD, reviewed the chart, and concur with the assessment and plan as above. We did review the risks of bleeding, infection, recurrence, incontinence, and the need for further procedures. She is aware that if the tract is deep, we may treat it first with a seton followed by other definitive procedures later. All of her questions were answered. She has elected to proceed.
--- OUTSIDE RECORDS SUMMARY | 2016-09-30 15:43 | XMS REPORT | Referral Summary ---
Author Author [facility], [facility] Organization [facility] Address Unknown Phone Unavailable Care Team Providers Care Program Engineer Name Role Phone Kimberly Tejeda Primary Care Physician [phone] Encounter VC Date(s): 04/04/15 - 04/04/15 [facility], [address] [place] [address] [place] Discharge Diagnosis: [...] tabs, Oral, BID, as needed for anxiety, [facility], # 30 tabs, 0 Refill(s) Start Date: 02/14/15 Status: Ordered Combivent Respimat CFC free 20 mcg-100 mcg/inh inhalation aerosol 1 puffs, Inhalation, QID, # 1 inhalers, 1 Refill(s), Pharmacy: [facility] #[id number] Start Date: 04/04/15 Status: Ordered Levaquin 750 mg oral tablet 750 mg 1 tabs, Oral, q24hr, X 7 days, # 7 tabs, 0 Refill(s), Pharmacy: [facility] #[id number], 1 tabs Oral q24hr,x7 days Start Date: 04/05/15 Stop Date: 04/12/15 Status: Ordered meloxicam 15 mg oral tablet 15 mg 1 tabs, Oral, Daily, # 30 tabs, 0 Refill(s), Pharmacy: [facility], 1 tabs Oral Daily Start Date: 04/01/15 Status: Ordered topiramate 50 mg oral tablet 50 mg 1 tabs, Oral, QID, 0 Refill(s) Start Date: 02/06/15 Status: Ordered Xanax 0.5 mg oral tablet 0.5 mg 1 tabs, Oral, BID, as needed for anxiety, X 30 days, # 45 tabs, 0 Refill( s), [facility] Start Date: 04/01/15 Stop Date: 05/01/15 Status: Ordered Zithromax 250 mg oral tablet 1 tabs, Oral, Daily, X 10 days, # 10 tabs, 0 Refill(s), Pharmacy: [facility], 1 tabs Oral Daily,x10 days Start Date: 04/01/15 Stop Date: 04/11/15 Status: Ordered Results No data available for [...] disposable A7003 Office Visit Level 5 Est 67523 Alcoholism 1. Recommended treatment for alcoholism with the intent for alcohol cessation. 2. Patient voiced understanding . Ordered: Office Visit Level 5 Est 81499 Anxiety disorder 1. At this time I [...] understanding. Ordered: Office Visit Level 5 Est 64295 Community acquired pneumonia Pathophysiology of this presentation, [...] understanding. Ordered: Office Visit Level 5 Est 39877 Continuous tobacco abuse Tobacco cessation recommended. Over an hour was spent [id number] with this patientto include initial evaluation, evaluation of the breathing treatment, injectionand evaluation prior to dismissal. Orders: ipratropium-albuterol, 1 puffs, Inhalation, QID, # 1 inhalers, 1 Refill(s), Pharmacy: [facility] #[id number]
--- OUTSIDE RECORDS SUMMARY | 2016-09-30 15:43 | XMS REPORT | Referral Summary ---
Author Author [facility] Organization [facility] Address Unknown Phone Unavailable Care Team Providers Care Set Up Mechanic Coating Machines Name Role Phone Bandar Adams Primary Care Physician [phone] Encounter VC Date(s): 05/10/15 - 05/10/15 [facility], Cardiology [address] [place], [place] [address] Discharge Disposition: 01-Home or Self Care Attending Physician: Bandar Adams DO Admitting Physician: Bandar Adams DO Vital Signs No data available for this section Problem List Condition Effective Dates Status Health [...] tabs, Oral, BID, as needed for anxiety, [facility] [place], # 30 tabs, 0 Refill(s) Start Date: 06/28/15 Status: Ordered Combivent Respimat CFC free 20 mcg-100 mcg/inh inhalation aerosol 1 puffs, Inhalation, QID, # 1 inhalers, 1 Refill(s), Pharmacy: [facility] #[id number] Start Date: 04/04/15 Status: Ordered Combivent Respimat CFC free 20 mcg-100 mcg/inh inhalation aerosol See Instructions, INHALE ONE INHALATION BY MOUTH FOUR TIMES A DAY, # 4 unknown unit, eRx: [facility] #[id number], INHALE ONE INHALATION BY MOUTH FOUR TIMES A DAY Start Date: 05/29/15 Status: Ordered meloxicam 15 mg oral tablet See Instructions, TAKE ONE TABLET BY MOUTH DAILY, # 30 tabs, eRx: [facility] #[id number], TAKE ONE TABLET BY MOUTH DAILY Start Date: 06/10/15 Status: Ordered meloxicam 15 mg oral tablet See Instructions, TAKE ONE TABLET BY MOUTH DAILY, # 30 tabs, 0 Refill(s), Pharmacy: [facility] #[id number], TAKE ONE TABLET BY MOUTH DAILY Start Date: 10/23/15 Status: Ordered Naprosyn 500 mg oral tablet See Instructions, TAKE ONE TABLET BY MOUTH TWICE A DAY, # 60 tabs, 1 Refill(s), eRx: [facility] #[id number], TAKE ONE TABLET BY MOUTH TWICE A DAY Start Date: 05/14/15 Status: Ordered Paxil 40 mg oral tablet See Instructions, TAKE ONE TABLET BY MOUTH DAILY, # 30 tabs, 5 Refill(s), eRx: [facility] #[id number], TAKE ONE TABLET BY MOUTH DAILY Start [...]
--- OUTSIDE RECORDS SUMMARY | 2016-09-30 15:43 | XMS REPORT | Referral Summary ---
Author Author [facility], [facility] Organization [facility] Address Unknown Phone Unavailable Care Team Providers Care Senior Product Integrity Engineer Name Role Phone Kimberly Tejeda Primary Care Physician [phone] Encounter VC Date(s): 04/04/15 - 04/04/15 [facility], [address] [place] [address] [place] Discharge Diagnosis: [...] tabs, Oral, BID, as needed for anxiety, [facility], # 30 tabs, 0 Refill(s) Start Date: 02/14/15 Status: Ordered Combivent Respimat CFC free 20 mcg-100 mcg/inh inhalation aerosol 1 puffs, Inhalation, QID, # 1 inhalers, 1 Refill(s), Pharmacy: [facility] #[id number] Start Date: 04/04/15 Status: Ordered meloxicam 15 mg oral tablet 15 mg 1 tabs, Oral, Daily, # 30 tabs, 0 Refill(s), Pharmacy: [facility], 1 tabs Oral Daily Start [...] days, # 10 tabs, 0 Refill(s), Pharmacy: [facility], 1 tabs Oral Daily,x10 days [...] disposable A7003 Office Visit Level 5 Est 87598 Alcoholism 1. Recommended treatment for alcoholism with the intent for alcohol cessation. 2. Patient voiced understanding . Ordered: Office Visit Level 5 Est 07666 Anxiety disorder 1. At this time I [...] understanding. Ordered: Office Visit Level 5 Est 85201 Community acquired pneumonia Pathophysiology of this presentation, [...] understanding. Ordered: Office Visit Level 5 Est 47873 Continuous tobacco abuse Tobacco cessation recommended. Over an hour was spent [id number] with this patientto include initial evaluation, evaluation of the breathing treatment, injectionand evaluation prior to dismissal. Orders: ipratropium-albuterol, 1 puffs, Inhalation, QID, # 1 inhalers, 1 Refill(s), Pharmacy: [facility] #[id number]
--- OUTSIDE RECORDS SUMMARY | 2016-09-30 15:43 | XMS REPORT | Referral Summary ---
Author Author [facility] Organization [facility] Address Unknown Phone Unavailable Care Team Providers Care Hot Mill Shearer Name Role Phone Bandar Adams Primary Care Physician [phone] Encounter VC Date(s): 03/20/15 - 03/20/15 [facility] [address] [place], [place] [address] Discharge Diagnosis: Anal fistula Discharge Disposition: 01-Home or Self Care Attending Physician: Rigoberto Cartagena MD Admitting Physician: Rigoberto Cartagena MD Referring Physician: Dank Tejeda MD Vital Signs No data available for this [...] QID, # 1 inhalers, 1 Refill(s), Pharmacy: [facility] #[id number] Start Date: 04/04/15 Status: Ordered Combivent Respimat CFC free 20 mcg-100 mcg/inh inhalation aerosol See Instructions, INHALE ONE INHALATION BY MOUTH FOUR TIMES A DAY, # 4 unknown unit, eRx: [facility] #[id number], INHALE ONE INHALATION BY MOUTH FOUR TIMES A DAY Start Date: 05/29/15 Status: Ordered meloxicam 15 mg oral tablet See Instructions, TAKE ONE TABLET BY MOUTH DAILY, # 30 tabs, eRx: [facility] #[id number], TAKE ONE TABLET BY MOUTH DAILY Start Date: 06/10/15 Status: Ordered Naprosyn 500 mg oral tablet See Instructions, TAKE ONE TABLET BY MOUTH TWICE A DAY, # 60 tabs, 1 Refill(s), eRx: [facility] #[id number], TAKE ONE TABLET BY MOUTH TWICE A DAY Start Date: 05/14/15 Status: Ordered Paxil 40 mg oral tablet See Instructions, TAKE ONE TABLET BY MOUTH DAILY, # 30 tabs, 5 Refill(s), eRx: [facility] #[id number], TAKE ONE TABLET BY MOUTH DAILY Start [...] Extracted from: Title: Office Visit Note Author: Rigoberto Cartagena MD Date: 03/20/15 Assessment/Plan Anal fistula She is doing well. At this point, she may follow-up with me as needed. All of her questions were answered. Ordered: Postoperative Est 58352 Extracted from: Title: Ambulatory Patient Education Author: Maricruz Magallanes LPN Date: 03/20/15 Family Medicine Anal Fistula An anal fistula is an abnormal tunnel that develops between the bowel and skin near the outside of the anus, where feces comes out. The anus has a number of tiny glands that make lubricating fluid. Sometimes these glands can become plugged and infected. This may lead to the development of a fluid-filled pocket (abscess). An anal fistula often develops after this [...] area with a gloved hand (digital rectal exam). Examination with a probe or scope to [...] promote healing. Seton placement. A silk string (seton) is placed into the fistula during a [...] you start to feel better. Only take [id number] or prescription medicines as directed by your [...] Released: 06/10/2009 Document Revised: 06/14/2013 Document Reviewed: [facility] Patient Information 2015 [facility] [facility]. This information is not intended to replace advice given to you by your health care provider. Make sure you discuss any questions you have with your health care provider. No follow up information was provided.
--- OUTSIDE RECORDS SUMMARY | 2016-09-30 15:43 | XMS REPORT | Referral Summary ---
Author Author [facility], [facility] Organization [facility] Address Unknown Phone Unavailable Care Team Providers Care Materials Clerk Name Role Phone Bandar Adams Primary Care Physician [phone] Encounter Date(s): 06/10/16 - 06/10/16 [facility] [place] [address] Discharge Diagnosis: Anxiety and depression Discharge Diagnosis: Folliculitis Discharge Diagnosis: Seizures Discharge Diagnosis: Hyperhidrosis Discharge Diagnosis: Psoriasis (a type of skin inflammation) Discharge Diagnosis: Internal hemorrhoid Discharge Disposition: 01-Home or Self Care Attending Physician: Bandar Adams DO Admitting Physician: Bandar Adams DO Vital Signs Most recent to 1 oldest [Reference Range]: Temperature Tympanic 36.2 degC [36.6-38.1 degC] *LOW* (06/10/16 3:23 PM) Peripheral Pulse 87 bpm Rate [60-100 bpm] (06/10/16 3:23 PM) Blood Pressure 142/88 mmHg [90-140/60-90 mmHg] *HI* (06/10/16 3:23 PM) Problem List Condition Effective Dates Status [...] # 30 tabs, 0 Refill(s) Start Date: 06/10/16 Status: Ordered calcipotriene 0.005% topical cream 1 daksha, Topical, BID, X 30 days, # 120 g, 0 Refill(s), Pharmacy: [facility] #[id number] Start Date: 06/10/16 Stop Date: 07/10/16 Status: Ordered clindamycin 300 mg oral capsule 300 mg 1 caps, Oral, q6hr, X 10 days, # 40 caps, 0 Refill(s), Pharmacy: [facility] #[id number], 1 caps Oral q6hr,x10 days Start Date: 06/10/16 Stop Date: 06/20/16 Status: Ordered Combivent Respimat CFC free 20 mcg-100 mcg/inh inhalation aerosol See Instructions, INHALE ONE INHALATION BY MOUTH FOUR TIMES A DAY, # 4 unknown unit, eRx: [facility] #[id number], INHALE ONE INHALATION BY MOUTH FOUR TIMES A DAY Start Date: 05/29/15 Status: Ordered Diflucan 150 mg oral tablet 150 mg 1 tabs, Oral, qWeek, # 2 tabs, 0 Refill(s), Pharmacy: [facility] # [id number], 1 tabs Oral qWeek Start Date: 06/10/16 Stop Date: 08/10/16 Status: Ordered hydrocortisone 2.5% topical cream 1 daksha, Topical, TID, # 30 g, 3 Refill(s), Pharmacy: [facility] #[id number] Start Date: 06/10/16 Stop Date: 07/10/16 Status: Ordered PARoxetine 40 mg oral tablet See Instructions, TAKE ONE TABLET BY MOUTH DAILY, # 30 tabs, 2 Refill(s), eRx: [facility] #[id number], TAKE ONE TABLET BY MOUTH DAILY Start Date: 06/06/16 Status: Ordered Results Hematology Most recent to 1 oldest [Reference Range]: WBC [4.8-10.8 8.6 10*3/uL 10*3/uL] (06/10/16 4:18 PM) RBC [4.00-5.20] 3.94 *LOW* (06/10/16 4:18 PM) Hgb [12.0-16.0 12.5 gm/dL gm/dL] (06/10/16 4:18 PM) Hct [37.0-47.0 %] 37.3 % (06/10/16 4:18 PM) MCV [82.0-99.0 fL] 94.7 fL (06/10/16 4:18 PM) MCH [27.0-32.0 pg] 31.7 pg (06/10/16 4:18 PM) MCHC [32.0-36.0 33.5 gm/dL gm/dL] (06/10/16 4:18 PM) RDW [11.5-14.5 %] 12.8 % (06/10/16 4:18 PM) Platelet [150-400 234 10*3/uL 10*3/uL] (06/10/16 4:18 PM) MPV [8.8-14.8 fL] 10.9 fL (06/10/16 4:18 PM) Immature 0.9 % Granulocytes (06/10/16 4:18 PM) [0.0-1.0 %] Neutrophils [51-75 58 % %] (06/10/16 4:18 PM) Lymphocytes [20-46 25 % %] (06/10/16 4:18 PM) Monocytes [4-11 %] 12 % *HI* (06/10/16 4:18 PM) Eosinophils [0-4 %] 4 % (06/10/16 4:18 PM) Basophils [0-2 %] 1 % (06/10/16 4:18 PM) Neutro Absolute 4.94 10*3 [1.90-7.00 10*3] (06/10/16 4:18 PM) Lymph Absolute 2.12 10*3 [0.80-3.30 10*3] (06/10/16 4:18 PM) [place] Absolute 1.04 10*3 [0.30-1.00 10*3] *HI* (06/10/16 4:18 PM) Eos Absolute 0.37 10*3 [0.00-0.50 10*3] (06/10/16 4:18 PM) Baso Absolute 0.04 10*3 [0.00-0.20 10*3] (06/10/16 4:18 PM) Chemistry Most recent to 1 oldest [Reference Range]: Sodium Lvl [135-144 139 mEq/L mEq/L] (06/10/16 4:18 PM) Potassium Lvl 4.6 mEq/L [3.5-5.2 mEq/L] (06/10/16 4:18 PM) Chloride [99-111 106 mEq/L mEq/L] (06/10/16 4:18 PM) CO2 [22-31 mEq/L] 24 mEq/L (06/10/16 4:18 PM) AGAP [3-20] 9 (06/10/16 4:18 PM) BUN [7-19 mg/dL] 9 mg/dL (06/10/16 4:18 PM) Glucose Lvl [70-99 86 mg/dL mg/dL] (06/10/16 4:18 PM) Creatinine Lvl 0.75 mg/dL [0.57-1.11 mg/dL] (06/10/16 4:18 PM) eGFR [>60 mL/min] >60 mL/min 1 (06/10/16 4:18 PM) Calcium Lvl 9.0 mg/dL [8.9-10.5 mg/dL] (06/10/16 4:18 PM) Albumin Lvl [3.5-5.0 3.8 gm/dL gm/dL] (06/10/16 4:18 PM) Total Protein 7.5 gm/dL [6.1-7.7 gm/dL] (06/10/16 4:18 PM) Globulin [1.8-4.0 3.7 gm/dL gm/dL] (06/10/16 4:18 PM) ALT [0-55 U/L] 20 U/L (06/10/16 4:18 PM) AST [5-34 U/L] 28 U/L (06/10/16 4:18 PM) Alk Phos [40-150 49 U/L U/L] (06/10/16 4:18 PM) Bili Total [0.2-1.2 0.4 mg/dL mg/dL] (06/10/16 4:18 PM) LH 18.2 mIU/mL 2 (06/10/16 4:18 PM) FSH 19.2 mIU/mL 3 (06/10/16 4:18 PM) T4 Free [0.7-1.5 0.9 ng/dL ng/dL] (06/10/16 4:18 PM) TSH with Reflex Free 5.07 T4 [0.35-4.94] *HI* (06/10/16 4:18 PM) 1Result Comment: Multiply eGFR results by 1.21 for race. 2Result Comment: Adult Female normal for Luteinizing Hormone: Follicular phase: 1.8 - 11.8 mIU/mL Mid-cycle: 7.6 - 89.1 mIU/mL Luteal phase: <1 - 14.0 mIU/mL Post-menopausal: 5.2 - 70.0 mIU/mL 3Result Comment: Adult Female ranges: Follicular: 3.0 - 8.1 mIU/mL Mid-cycle: 2.6 - 16.7 mIU/mL Luteal Phase 1.4 - 5.5 mIU/mL Post-menopausal 26.7 - 133.4 mIU/mL Immunizations Vaccine Date Refusal Reason pneumococcal 23-polyvalent [...] Visit Note Author: Bandar Adams DO Date: 06/10/16 Assessment/Plan 1.Psoriasis (a type of skin inflammation) 1. Calcipotriene refilled for twice a day application 2. Follow-up if worsening presentation, we may need to refer her to dermatology for consideration of methotrexate Ordered: calcipotriene topical, 1 daksha, Topical, BID, X 30 days, # 120 g, 0 Refill(s), Pharmacy: [facility] #[id number] Office Visit Level 5 Est 79872 2.Seizures 1. Patient advised to ensure that she is following up with her neurologist for management of her seizures. She will call and try to make an early appointment. 2. Alcohol cessation recommended. Anxiety and depression 1. Continue with paroxetine at 40 mg daily. 2. Continue with alprazolam one tablet when necessary. Ordered: CBC w/ Differential Comprehensive Metabolic Panel Office Visit Level 5 Est 64464 TSH with Reflex Free T4 Folliculitis 1. Lesion along the breast cleavage appears to be folliculitis. 2. Clindamycin one tablet every 6 hours for 10 days 3. She was treated prophylactically for yeast infection secondary to antibiotic therapy with Diflucan one tablet weekly for the next 2 weeks 4. Follow-up if worsening presentation 5. Avoid squeezing this lesion. Ordered: Office Visit Level 5 Est 54965 Hyperhidrosis 1. I am not sure if this hyperhidrosis and have flashes are related to her seizure medications or stopping them. 2. Screening labs ordered to consist of CBC, FSH, LH, TSH. She may very well be perimenopausal. Ordered: CBC w/ Differential Comprehensive Metabolic Panel FSH and LH Office Visit Level 5 Est 01581 TSH with Reflex Free T4 Internal hemorrhoid 1. Proctocort was refilled, apply twice a day as needed. Ordered: calcipotriene topical, 1 daksha, Topical, BID, X 30 days, # 120 g, 0 Refill(s), Pharmacy: [facility] #[id number] Office Visit Level 5 Est 69396 Tobacco cessation recommended.
--- OUTSIDE RECORDS SUMMARY | 2016-09-30 15:43 | XMS REPORT | Referral Summary ---
Author Author [facility] Organization [facility] Address Unknown Phone Unavailable Care Team Providers Care Data Collection Interviewer Name Role Phone Bandar Adams Primary Care Physician [phone] Encounter VC Date(s): 02/19/15 - 02/19/15 [facility] [address] [place], [place] [address] Discharge Diagnosis: Anal fistula Discharge Disposition: 01-Home or Self Care Attending Physician: Rigoberto Cartagena MD Admitting Physician: Rigoberto Cartagena MD Vital Signs No data available for [...] QID, # 1 inhalers, 1 Refill(s), Pharmacy: [facility] #[id number] Start Date: 04/04/15 Status: Ordered Combivent Respimat CFC free 20 mcg-100 mcg/inh inhalation aerosol See Instructions, INHALE ONE INHALATION BY MOUTH FOUR TIMES A DAY, # 4 unknown unit, eRx: [facility] #[id number], INHALE ONE INHALATION BY MOUTH FOUR TIMES A DAY Start Date: 05/29/15 Status: Ordered meloxicam 15 mg oral tablet See Instructions, TAKE ONE TABLET BY MOUTH DAILY, # 30 tabs, eRx: [facility] #[id number], TAKE ONE TABLET BY MOUTH DAILY Start Date: 06/10/15 Status: Ordered Naprosyn 500 mg oral tablet See Instructions, TAKE ONE TABLET BY MOUTH TWICE A DAY, # 60 tabs, 1 Refill(s), eRx: [facility] #[id number], TAKE ONE TABLET BY MOUTH TWICE A DAY Start Date: 05/14/15 Status: Ordered Paxil 40 mg oral tablet See Instructions, TAKE ONE TABLET BY MOUTH DAILY, # 30 tabs, 5 Refill(s), eRx: [facility] #[id number], TAKE ONE TABLET BY MOUTH DAILY Start [...] Visit Note Author: Rigoberto Cartagena MD Date: 02/19/15 Assessment/Plan Anal fistula She is doing well. I would like to see her back again in 6 weeks. All of her questions were answered. Ordered: Postoperative Est 74930 Extracted from: Title: Ambulatory Patient Education Author: Maricruz Magallanes LPN Date: 05/26 Family Medicine Anal Fistula An anal fistula [...] you start to feel better. Only take [id number] or prescription medicines as directed by your [...] Released: 06/10/2009 Document Revised: 06/14/2013 Document Reviewed: ExitCare Patient Information 2015 [employer], [facility]. This information is not intended to replace advice given to you by your health care provider. Make sure you discuss any questions you have with your health care provider. No follow up information was provided.
--- OUTSIDE RECORDS SUMMARY | 2016-09-30 15:43 | XMS REPORT | Referral Summary ---
Author Author [facility] Organization [facility] Address Unknown Phone Unavailable Care Team Providers Care Educational Interpreter Name Role Phone Bandar Adams Primary Care Physician [phone] Encounter VC Date(s): 02/07/15 - 02/07/15 [facility] [address] [place], [place] [address] Discharge Disposition: 01-Home or Self Care Attending [...] QID, # 1 inhalers, 1 Refill(s), Pharmacy: [facility] #[id number] Start Date: 04/04/15 Status: Ordered Combivent Respimat CFC free 20 mcg-100 mcg/inh inhalation aerosol See Instructions, INHALE ONE INHALATION BY MOUTH FOUR TIMES A DAY, # 4 unknown unit, eRx: [facility] #[id number], INHALE ONE INHALATION BY MOUTH FOUR TIMES A DAY Start Date: 05/29/15 Status: Ordered meloxicam 15 mg oral tablet See Instructions, TAKE ONE TABLET BY MOUTH DAILY, # 30 tabs, eRx: [facility] #[id number], TAKE ONE TABLET BY MOUTH DAILY Start Date: 06/10/15 Status: Ordered Naprosyn 500 mg oral tablet See Instructions, TAKE ONE TABLET BY MOUTH TWICE A DAY, # 60 tabs, 1 Refill(s), eRx: [facility] #[id number], TAKE ONE TABLET BY MOUTH TWICE A DAY Start Date: 05/14/15 Status: Ordered Paxil 40 mg oral tablet See Instructions, TAKE ONE TABLET BY MOUTH DAILY, # 30 tabs, 5 Refill(s), eRx: [facility] #[id number], TAKE ONE TABLET BY MOUTH DAILY Start Date: 07/01/15 Status: Ordered topiramate 50 mg oral tablet 50 mg 1 tabs, Oral, QID, 0 Refill(s) Start Date: 02/06/15 Status: Ordered Results No data available for this section Immunizations Vaccine Date Refusal Reason pneumococcal 23-polyvalent vaccine 10/26/13 Procedures Procedure Date Related Diagnosis Body Site Fistulectomy Anal1 02/07/15 Surgical treatment of anal fistula 02/07/15 (fistulectomy/fistulotomy); transsphincteric, suprasphincteric, extrasphincteric or multiple, including placement of seton, when performed Colonoscopy 2001 Colonoscopy 1998 Hysterectomy 1990 Breast augmentation Tonsillectomy Tooth extraction2 1auto-populated from documented surgical case 2WISDOM TEETH Social History Social History Type Response Smoking Status Current every day smoker; Type: Cigarettes; Tobacco use per day: Pack; Number of years: 22 Assessment and Plan No data available for this section
--- OUTSIDE RECORDS SUMMARY | 2016-09-30 15:43 | XMS REPORT | Continuity of Care Document ---
Author Author [facility] Organization [facility] Address Unknown Phone Unavailable Support Name Relationship Address Phone LOREE DIAZ MD Caregiver [address] [place] [address] Unavailable ROMEO SHARMA DO Caregiver [address] [place] [address] Unavailable RICKY KAYLA Next Of Kin [address] [place], [place] [id number] Insurance Providers Guarantor Elyse Francisco Address [address] [place] [address] C* Email DENIED/NO PT PORT Payer [facility] Policy Number [id number] Subscriber's Name Elyse Francisco Relationship 18 Self Group Number [id number] Advance Directives Directive Response Recorded Date/Time Advanced Directives Type None 12/20/15 2:43pm Chief Complaint and Reason for Visit Chief Complaint Chest Pain Reason for Visit Head ache Chest pain Problems Active Problems Medical Problem Onset Date Status Alcohol abuse Unknown Chronic Alcohol withdrawal seizure Unknown Acute Anxiety Unknown Chronic Anxiety Unknown Acute Delirium tremens Unknown Acute Depression Unknown Chronic HTN (hypertension) Unknown Chronic History of seizures Unknown Acute Metallic taste Unknown Acute Numbness and tingling Unknown Acute Obesity (BMI 30.0-34.9) Unknown Chronic Sense of smell altered Unknown Acute Past Problems Medical Problem Onset Date Chest pain Unknown Head ache Unknown Medications Current Home Medications Medication Dose Units Route Directions Days Qty Instructions Start Date Alprazolam (Xanax) 0.5 Mg Tablet 0.5 Mg Oral Twice A Day as needed for Anxiety 02/27/14 Multivitamin (Men's Multi-Vitamin) 1 Each Tablet 1 Tab Oral Daily 12/20/15 Paroxetine Hcl 40 Mg Tablet 40 Mg Oral Daily 09/04/15 Topiramate 50 Mg Tablet 150 Mg Oral Twice A Day 12/20/15 Past Home Medications Medication Directions Ordered Status Aspirin 325 Mg Tablet, 325 Mg Oral As Needed 02/27/14 Discontinued Calcium Carbonate/Vitamin D3 (Calcarb 600 W-Vitamin D Tab) 1 Each Tablet, 1 Tab Oral Daily 02/28/14 Discontinued Lisinopril 10 Mg Tablet, 1 Tab Oral Bedtime 02/27/14 Discontinued Mirtazapine 30 Mg Tab.rapdis, 30 Mg Oral Bedtime 02/27/14 Discontinued Omeprazole Magnesium (Prilosec Otc) 20 Mg Tablet.dr, 1 Tab Oral Daily as needed for Dyspepsia 02/28/14 Discontinued Oxazepam 15 Mg Capsule, 1 Cap Oral Taper for Alcohol Withdrawl Symptoms 02/28 Discontinued Social History Social History Problem Response Recorded Date/Time Onset Date Status Tobacco abuse 02/27/2014 11:54am Unknown Active Hx Substance Use No 12/20/2015 2:50pm Not Applicable Not Applicable Hx Alcohol Use Y 9 OZ. DAILY 12/20/2015 2:50pm Not Applicable Not Applicable Has the pt used tobacco in the last 12 months Yes 09/05/2015 7:52am Not Applicable Not Applicable Tobacco Usage smoke 02/27/2014 11:59am Not Applicable Not Applicable Query Response Start Date Stop Date Smoking Status Current every day smoker Hospital Discharge Instructions No hospital discharge instructions. Plan of Care Discharge Date 12/20/15 4:44pm Disposition 01 DISCHARGED HOME, SELF-CARE Condition at Discharge Stable Instructions/Education Provided DI for Atypical Chest Pain DI for Headache Prescriptions See Medication Section Referrals ROMEO SHARMA DO Address: [address] [place] [address] [place]ARPE [phone] Additional Instructions/Education Go home and rest. If you should have any return of symptoms as severe as they were then please return to Er. Follow up with your neurologist or primary care provider for reevaluation if this persists. Care Plan and Goals Physician Care Plan Problem:Headache, chest pain Goal: Follow up with primary care provider Instructions: Take medications and follow care plan as discussed/written Functional Status No functional status results. Allergies, Adverse Reactions, Alerts Allergen Type Severity Reaction Status Last Updated Penicillin Allergy Mild RASH Active 12/20/15 Sulfa (Sulfonamide Antibiotics) Allergy Unknown RASH Active 12/20/15 Latex Allergy Mild dry red skin Active 12/20/15 Immunizations Query Response on File Recorded Date/Time Hx Influenza Vaccination No 09/05/15 7:52am Hx Pneumococcal Vaccination No 09/05/15 7:52am Hx Influenza Vaccination No 09/05/15 7:52am Vital Signs Acute Vital Signs Vital Response Date/Time Temperature (Fahrenheit) 98.8 deg F (96.8 - 99.1) 12/20/2015 2:43pm Temperature (Calculated Celsius) 37.39479 degrees C (36.0 - 37.3) 12/20/2015 2:43pm Pulse Rate (adult) 76 bpm (60 - 100) 12/20/2015 4:44pm Respiratory Rate 16 breaths/min (10 - 20) 12/20/2015 4:44pm O2 Sat by Pulse Oximetry 98 % (90 - 100) 12/20/2015 4:44pm Blood Pressure 132/82 mm Hg 12/20/2015 4:44pm Height (Feet) 5 feet 12/20/2015 2:43pm Height (Inches) 7.00 inches 12/20/2015 2:43pm Weight (Kilograms) 81.900 kg 12/20/2015 2:43pm Body Mass Index (BMI) 28.0 12/20/2015 2:43pm Results Laboratory Results Test Name Result Units Flags Reference Collection Date/Time Result Date/ Time Comments White Blood Count 5.8 T/MM3 4.5-11.0 12/20/2015 3:10pm 12/20/2015 3: 16pm Red Blood Count 3.86 M/MM3 L 4.00-5.20 12/20/2015 3:10pm 12/20/2015 3: 16pm Hemoglobin 12.6 GM/DL 12-16 12/20/2015 3:pm 12/20/2015 3:16pm Hematocrit 37.6 % 36-46 12/20/2015 3:1012/20/2015 3:16pm Mean Corpuscular Volume 97.4 UM3 80-100 12/20/2015 3:12/20/2015 3: 16pm Mean Corpuscular Hemoglobin 32.6 UUG 26-34 12/20/2015 3:10pm 2015 3:16pm Mean Corpuscular Hemoglobin Concent 33.5 GM/DL 31-37 12/20/2015 3:10pm 12/20/2015 3:16pm RDW Standard Deviation 41.1 FL 36.9-50.2 12/20/2015 3:10pm 12/20/2015 3 :16pm Platelet Count 203 T/MM3 130-400 12/20/2015 3:1012/20/2015 3:16pm Mean Platelet Volume 10.6 UM3 9.4-12.4 12/20/2015 3:12/20/2015 3: 16pm Neutrophils (%) (Auto) 45.6 % 33-66 12/20/2015 3:12/20/2015 3: 16pm Lymphocytes (%) (Auto) 40.1 % 23-45 12/20/2015 3:12/20/2015 3: 16pm Monocytes (%) (Auto) 7.6 % 0-9.0 12/20/2015 3:12/20/2015 3:16pm Eosinophils (%) (Auto) 5.3 % H 0-4 12/20/2015 3:12/20/2015 3:16pm Basophils (%) (Auto) 0.7 % 0-2 12/20/2015 3:12/20/2015 3:16pm Immature Granulocyte % (Auto) 0.7 % H 0.0-0.5 12/20/2015 3:2015 3:16pm Absolute Neutrophils (auto) 2.7 T/MM3 1.8-7.7 12/20/2015 3:2015 3:16pm Absolute Lymphocytes (auto) 2.3 T/MM3 1-4.8 12/20/2015 3:2015 3:16pm Absolute Monocytes (auto) 0.4 T/MM3 0-0.8 12/20/2015 3:12/20/2015 3:16pm Absolute Eosinophils (auto) 0.3 T/MM3 0-0.5 12/20/2015 3:2015 3:16pm Absolute Basophils (auto) 0.0 T/MM3 0-0.2 12/20/2015 3:12/20/2015 3:16pm Absolute Immature Granulocyte (auto 0.04 T/MM3 H 0.00-0.03 12/20/2015 3: 12/20/2015 3:16pm Icterus Index < 2 0-7 12/20/2015 3:12/20/2015 3:24pm Chemistry Specimen Hemolysis < 15 0-25 12/20/2015 3:12/20/2015 3 :24pm 0-25: Specimen Exhibited No Hemolysis. Turbidity 23 H 0-20 12/20/2015 3:12/20/2015 3:24pm 0-21: Turbidity not present. 22-999: Turbidity present - Gross turbidity can falsely decrease Lipase and Triglycerides. Sodium Level 140 MEQ/L 134-144 12/20/2015 3:12/20/2015 3:24pm Potassium Level 3.5 MEQ/L L 3.6-5 12/20/2015 3:12/20/2015 3:24pm Chloride Level 106 MEQ/L 98-107 12/20/2015 3:12/20/2015 3:24pm Carbon Dioxide Level 22 MEQ/L 22-30 12/20/2015 3:12/20/2015 3: 24pm Anion Gap 12 MEQ/L 5-15 12/20/2015 3:12/20/2015 3:24pm Blood Urea Nitrogen 17.0 MG/DL 7-17 12/20/2015 3:12/20/2015 3: 24pm Creatinine 0.8 MG/DL 0.7-1.2 12/20/2015 3:12/20/2015 3:24pm BUN/Creatinine Ratio 21 RATIO 6-26 12/20/2015 3:12/20/2015 3:24pm Glomerular Filtration Rate Calc 77 12/20/2015 3:12/20/2015 3: 24pm Glucose Level 103 MG/DL 65-110 12/20/2015 3:12/20/2015 3:24pm Calculated Osmolality 271 MOSM/KG 261-280 12/20/2015 3:12/20/2015 3:24pm Calcium Level 8.7 MG/DL 8.4-10.2 12/20/2015 3:12/20/2015 3:24pm Troponin I < 0.012 ng/ml 0-0.12 12/20/2015 3:12/20/2015 3:36pm Troponin values with a difference of 55% increase from orginal troponin value represent a true biological DELTA value. (%increase Calc=Orginal Troponin value, divided by subsequent Troponin value, multiplied by 100) Name: ELYSE FRANCISCO Unit #: [id number] : [id number] Sex: F Admit Date: Loc / Svc: ED Discharge Date: DIAGNOSTIC IMAGING REPORT Report #: [id number] [facility] JOLLY [place] Indication: ITS.REASON: sudden onset severe headache PROCEDURE: CT HEAD W/O CONTRAST: Encounter: Initial Comparison: None Technique: Axial CT images through the head were performed without contrast. FINDINGS: The ventricles are of normal size, shape, and configuration for the patient's age. There is no evidence of acute intracranial hemorrhage, midline displacement, or mass effect. The CT attenuation of the brain parenchyma is normal within the cerebellum, brain stem, and cerebral hemispheres. The tympanic cavities and mastoid air cells are free of appreciable disease. There are no definite fractures of the skull base, calvarium, or visualized portion of the midface. IMPRESSION: No CT evidence of acute intracranial abnormality. . Procedures No known history of procedures. Encounters Encounter Location Arrival/Admit Date Discharge/Depart Date Attending Provider Departed Emergency Room [facility] 12/20/15 2:39pm 12/20/15 4: 44pm LOREE DIAZ MD Recent Diagnosis
--- NOTE | 2016-09-30 15:57 | NUR ---
DR DAUGHERTY IN
[2016-09-30] MEDS ORDERED: ASPIRIN 81 MG CHEWABLE TABLET PO ONE (16:00)
[2016-09-30] MEDS ORDERED: NITROGLYCERIN 0.4 MG SUBLINGUAL TABLET SL PRN (16:00)
[2016-09-30 16:04] VITALS: Ht 170.2 cm; Wt 83.8 kg
--- NOTE | 2016-09-30 16:08 | ERPDOC ---
Departure Disposition Decision Date: Sep 30, 2016 Disposition Decision Time: 16:59 Disposition: 07 AGAINST MEDICAL ADVICE Impression Impression Impression: Primary Impression: Chest pain Chest pain type: unspecified Qualified Codes: R07.9 - Chest pain, unspecified Additional Impression: Left against medical advice Severity: Moderate Condition: Improved Seen By: Physician only Referrals: ROMEO SHARMA DO (Family) 1 Day KWAME CURRY MD Call tomorrow for appointment Patient Instructions: Chest Pain (ED) Problems/Meds/Labs Reviewed?: Yes Medications reviewed and manag: Yes Follow up care ordered?: Yes Mental Status: Alert, Oriented HPI - Chest Pain General Stated Complaint: CHEST PAIN Time Seen by Provider: 16:04 Source: patient (Patient presents to the ER with chest pain, which apparently began a few days ago as "Heartburn" steadily increasing to a sharp substernal pain at approx 10am) Exam Limitations: no limitations HPI - Chest Pain Occurred At: home Onset/Timing: Changing over time Duration: 4-6 hrs Pain/Severity Scale: Now & Worst: 6/10 Activities at Onset/Context: other Location: substernal Quality: 'pain' Modifying Factors: IMPROVES WITH: nitroglycerin Associated Symptoms: denies symptoms Chest Pain Radiation: no radiation Nitro Today/Relief: 0.4 mg x 1, provided by ED, complete relief Aspirin Treatment Today: 325 mg x 1, provided by ED Prior Chest Pain/Cardiac Patrick: no prior chest pain Hx of Similar Symptoms: No Allergies: Coded Allergies: Penicillins (Verified Allergy, Mild, RASH, 09/30/16) latex (Verified Allergy, Mild, dry red skin, 09/30/16) Sulfa (Sulfonamide Antibiotics) (Unverified Allergy, Unknown, RASH, ) Past History Past Medical History Metabolic: hypertension Neurological: seizures Psychological: alcohol abuse, anxiety, depression Surgical History Denies Surgeries Reproductive/: hysterectomy Family History Family PMH: FOUND: cancer Vaccines Hx Influenza Vaccination: No Hx Pneumococcal Vaccination: No Social History Smoking Status: Current every day smoker Does patient use chewing tobac: No # of Packs/Tins per Day: 0.5 # of Years: 30 Second Hand Exposure: No Substance Use Type: does not use Alcohol Intake: none Marital Status: Single Sexuality: male partner Housing: house Household Members: significant other Service: No Current Occupational Status: employed Occupational Hazard: No Advance Directives: Yes Full Code Record Review Pertinent history updated: Yes Review of Systems Constitutional Constitutional: DENIES: chills, fever Eyes Lids/Accessories: DENIES: erythema, swelling ENMT Ears: DENIES: erythema, pain Balance: DENIES: ataxia, vertigo Sinuses: DENIES: congestion, rhinorrhea Mouth/Throat: DENIES: sore throat Cardiovascular Cardiac: chest pain, DENIES: dyspnea on exertion, orthopnea Rhythm/Rate: DENIES: tachycardia Pulmonary Respiratory: DENIES: cough, dyspnea, sputum GI Upper Abdomen: DENIES: nausea, pain, vomiting Lower Abdomen: DENIES: constipation, diarrhea, pain General: DENIES: dysuria Musculoskeletal General: DENIES: cramps, pain, weakness Integumentary Skin: DENIES: color change, itching, rash Neurological General: DENIES: ataxia, change in strength, headache, numbness, poor coordination, seizures, syncope, vertigo, weakness Psychiatric Psychiatric: DENIES: anxiety, depression, nervousness Hematologic/Lymphatic Hematologic/Lymphatic: DENIES: anemia Allergic/Immunological Allergic/Immunoligical: DENIES: sneezing All other Systems All Other Systems: Reviewed and Negative Physical Exam General General Nourishment: well nourished, well developed, appears stated age, adult , thin General Body Habitus: well groomed Vitals and Pain First Documented Vital Signs Date Time Temp Pulse Resp B/P Pulse Ox O2 Delivery O2 Flow Rate FiO2 09/30/16 15:38 98.1 93 24 167/89 97 Room Air Weight: Kilograms: Height (feet): 5 Height (inches): 7.00 Triage Pain Scale: RN VS reviewed by Provider: Yes Eyes (brief) Eyes Brief: found: EOMI, PERRL ENMT (brief) ENMT Brief: FOUND: TM clear, TM good light reflex, mucosa moist, NOT FOUND: pharnyx erythema Neck (brief) Neck: FOUND: trachea midline, NOT FOUND: adenopathy, tenderness, tracheal deviation Respiratory (brief) Respiratory: FOUND: clear all bardales, equal bilaterally Cardiovascular (brief) Cardiac: FOUND: regular rate, regular rhythm Capillary Refill: <2 sec Pulses: all distal extremities, equal, strong Abdomen (brief) Abdominal Brief: FOUND: bowel normo active x4, soft, NOT FOUND: distended, tender Lymphatic (brief) Lymphatic Brief: NOT FOUND: adenopathy Musculoskeletal (brief) Musculoskeletal Brief: NOT FOUND: spasm, tenderness Integumentary (brief) Integumentary Brief: FOUND: pink, warm Neurologic (brief) Neurological Brief: FOUND: CN w/o gross def to obs, gait w/o gross def to obs, motor-no gross deficits, sensory-no gross deficits, NOT FOUND: ataxia Psychiatric (brief) Psychiatric Brief: FOUND: alert, attentive, normal affect, oriented Differential Diagnoses Considering: Acute AL, Anxiety/Panic, Angina, Biliary Colic, CHF, Costochondritis, Esophageal Spasm, Hypertensive Emergency, Pleurisy, Pneumothorax, Pneumonia, Pulmonary Edema, Other Progress Results/Orders Orders Lab Results Medications Current ED Medications Aspirin (ASA) 324 mg O ONCE PO Last administered on 09/30/16 16:02; Start at 16:00; Stop 09/30/16 at 16:01; Status DC Nitroglycerin (Nitrostat) 0.4 mg Q5MIN PRN SL CHEST PAIN Last administered on 16:06; Start 09/30/16 at 16:00; Stop 09/30/16 at 18:10; Status DC Pantoprazole Sodium (Protonix Iv) 40 mg O ONCE IV Last administered on 16:31; Start 09/30/16 at 16:30; Stop 09/30/16 at 16:31; Status DC Progress Progress Patient pain free following Nitroglycerin I recommended Admission or at minimum repeat cardiac enzymes, but the patient refused I will have the patient sign an AMA EKG EKG : Rate: 60-100 Rhythm: sinus [place]: normal QRS: normal Intervals: normal ST/T: normal Interpreted by: signing physician EKG ScImage/Picomm EKG interpreted in ScImage/Pic: No Xray Xray : Reason for Exam: chest pain Xray: CXR Portable Interpretation: Normal, Reviewed Written Report FELICIA DAUGHERTY DO Sep 30, 2016 16:08 Nitroglycerin PHA 09/30/16 In Process (Nitrostat) 16:00 Pantoprazole PHA 09/30/16 Complete (Protonix Iv) 16:30 Lab Results Laboratory Tests Test 09/30/16 15:58 White Blood Count 6.2T/MM3 Red Blood Count 4.19M/MM3 Hemoglobin 13.5GM/DL Hematocrit 40.3% Mean Corpuscular Volume 96.2UM3 Mean Corpuscular Hemoglobin 32.2UUG Mean Corpuscular Hemoglobin Concent 33.5GM/DL RDW Standard Deviation 41.2FL Platelet Count 234T/MM3 Mean Platelet Volume 10.7UM3 Immature Granulocyte % (Auto) 0.6% Neutrophils (%) (Auto) 53.6% Lymphocytes (%) (Auto) 31.2% Monocytes (%) (Auto) 7.2% Eosinophils (%) (Auto) 6.8% Basophils (%) (Auto) 0.6% Absolute Immature Granulocyte (auto 0.04T/MM3 Absolute Neutrophils (auto) 3.3T/MM3 Absolute Lymphocytes (auto) 1.9T/MM3 Absolute Monocytes (auto) 0.5T/MM3 Absolute Eosinophils (auto) 0.4T/MM3 Absolute Basophils (auto) 0.0T/MM3 Prothromb Time International Ratio 0.98 Turbidity < 20 Sodium Level 142MEQ/L Potassium Level 3.6MEQ/L Chloride Level 108MEQ/L Carbon Dioxide Level 20MEQ/L Anion Gap 14MEQ/L Blood Urea Nitrogen 13.0MG/DL Creatinine 0.8MG/DL Glomerular Filtration Rate Calc 76 BUN/Creatinine Ratio 16RATIO Glucose Level 112MG/DL Calculated Osmolality 274MOSM/KG Calcium Level 9.0MG/DL Icterus Index < 2 Troponin I < 0.012ng/ml ST-Hjf-C-Type Natriuretic Peptide 42PG/ML Chemistry Specimen Hemolysis 33 Medications Current ED Medications Aspirin (ASA) 324 mg O ONCE PO Last administered on 09/30/16 16:02; Start at 16:00; Stop 09/30/16 at 16:01; Status DC Nitroglycerin (Nitrostat) 0.4 mg Q5MIN PRN SL CHEST PAIN Last administered on 16:06; Start 09/30/16 at 16:00 Pantoprazole Sodium (Protonix Iv) 40 mg O ONCE IV Last administered on 16:31; Start 09/30/16 at 16:30; Stop 09/30/16 at 16:31; Status DC Progress Progress Patient pain free following Nitroglycerin I recommended Admission or at minimum repeat cardiac enzymes, but the patient refused I will have the patient sign an AMA EKG EKG : Rate: 60-100 Rhythm: sinus [place]: normal QRS: normal Intervals: normal ST/T: normal Interpreted by: signing physician EKG ScImage/Picomm EKG interpreted in ScImage/Pic: No Xray Xray : Reason for Exam: chest pain Xray: CXR Portable Interpretation: Normal, Reviewed Written Report FELICIA DAUGHERTY DO Sep 30, 2016 16:08
--- OUTSIDE RECORDS SUMMARY | 2016-09-30 16:12 | XMS REPORT | Continuity of Care Document ---
Author Author [facility] Address Unknown Phone Unavailable Allergies Active Description Code Type Severity Reaction Onset Reported/Identified Relationship to Patient Clinical Status Yes SULFA Drug Allergy N/A N/A Medications Problems Procedures Results Encounters ACCT No. Visit Date/Time Discharge Status Pt. Type Provider Facility Loc./Unit Complaint [id number] 05/15/2016 06:50:23 05/15/2016 06:50:23 Outpatient [id number] 04/22/2016 08:22:51 04/22/2016 08:22:51 DIS Outpatient [id number] 04/16/2016 06:54:23 04/16/2016 06:54:23 ACT Outpatient [id number] 03/03/2016 03:58:39 03/03/2016 03:58:39 ACT Outpatient [id number] 03/03/2016 03:25:07 03/03/2016 03:25:07 ACT Outpatient [id number] 03/02/2016 20:36:00 03/02/2016 20:36:00 ACT Outpatient [id number] 03/02/2016 19:38:15 03/02/2016 19:38:15 ACT Outpatient [id number] 03/02/2016 19:20:25 03/02/2016 19:20:25 ACT Outpatient [id number] 10/01/2015 13:43:06 10/01/2015 13:43:06 DIS Outpatient [id number] 09/30/2015 13:50:19 09/30/2015 13:50:20 DIS Outpatient [id number] 09/30/2015 13:49:38 09/30/2015 13:49:39 DIS Outpatient [id number] 09/30/2015 13:49:37 09/30/2015 13:49:38 DIS Outpatient [id number] 09/30/2015 13:36:25 09/30/2015 13:36:25 DIS Outpatient [id number] 09/30/2015 11:34:11 09/30/2015 11:34:13 DIS Outpatient [id number] 09/30/2015 11:33:58 09/30/2015 11:34:00 DIS Outpatient [id number] 09/30/2015 11:03:12 09/30/2015 11:03:14 DIS Outpatient [id number] 09/30/2015 10:51:07 09/30/2015 10:51:07 DIS Outpatient [id number] 09/30/2015 10:51:04 09/30/2015 10:51:05 DIS Outpatient [id number] 09/30/2015 10:51:03 09/30/2015 10:51:03 DIS Outpatient [id number] 09/30/2015 10:50:59 09/30/2015 10:51:00 DIS Outpatient [id number] 09/30/2015 10:46:54 09/30/2015 10:46:55 DIS Outpatient [id number] 07/02/2015 12:21:39 07/02/2015 12:21:44 DIS Outpatient [id number] 04/02/2015 09:39:57 04/02/2015 23:59:59 CLS Outpatient [id number] 04/02/2015 09:39:20 04/02/2015 23:59:59 CLS Outpatient [id number] 04/02/2015 09:39:19 04/02/2015 09:39:19 DIS Outpatient [id number] 04/02/2015 09:38:06 04/02/2015 09:38:11 DIS Outpatient [id number] 05/22/2016 15:06:33 DIS Outpatient [id number] 05/20/2016 12:50:32 DIS Outpatient [id number] 04/22/2016 08:23:04 DIS Outpatient [id number] 04/16/2016 09:05:14 ACT Outpatient [id number] 04/16/2016 09:01:42 ACT Outpatient [id number] 04/16/2016 09:01:41 ACT Outpatient [id number] 04/16/2016 08:57:27 ACT Outpatient [id number] 04/16/2016 08:57:03 ACT Outpatient [id number] 04/16/2016 08:57:01 ACT Outpatient [id number] 04/16/2016 08:56:05 ACT Outpatient [id number] 04/16/2016 08:55:45 ACT Outpatient [id number] 04/16/2016 08:55:43 ACT Outpatient [id number] 04/09/2016 09:12:43 Document Registration [id number] 04/08/2016 12:42:02 Document Registration [id number] 04/06/2016 14:46:00 Document Registration [id number] 10/01/2015 10:59:08 DIS Outpatient [id number] 09/30/2015 13:50:24 DIS Outpatient [id number] 09/30/2015 11:58:27 DIS Outpatient [id number] 09/30/2015 11:55:25 DIS Outpatient [id number] 09/30/2015 11:06:39 DIS Outpatient [id number] 09/30/2015 11:00:00 Document Registration [id number] 09/30/2015 10:59:00 Document Registration [id number] 09/30/2015 10:51:05 DIS Outpatient
--- OUTSIDE RECORDS SUMMARY | 2016-09-30 16:12 | XMS REPORT | Continuity of Care Document ---
Author Author [facility] Organization [facility] Address Unknown Phone Unavailable Support Name Relationship Address Phone ROBERTO SCHERER MD Caregiver [address] [place] [address] [phone] JESSE GUERRA MD Caregiver [address] [place] [phone] ASHER ZAYAS MD Caregiver [address] [address] Unavailable KAYLA GARCÍA Next Of Kin [address] [place] [address] Insurance Providers Payer Name Policy Number Subscriber Name Relationship [facility] [id number] Karla Franciscobala Israel 20 Self Advance Directives [...] of your legs. 3.During office hours, call [phone] 4. After hours, please call [facility] at [phone], and have the butane compressor operator page your Surgeon IN THE EVENT [...] F (96.8 - 99.1) Temperature (Calculated Celsius) 36.23269 degrees C (36.0 - 37.3) Temperature Source [...] procedures. Encounters Encounter Location Date/Time Discharged Inpatient [facility] 02/27/14 6:11am Recent Diagnosis Delirium tremens Alcohol abuse Alcohol withdrawal seizure HTN (hypertension) Depression Anxiety Obesity (BMI 30.0-34.9)
--- OUTSIDE RECORDS SUMMARY | 2016-09-30 16:13 | XMS REPORT | Continuity of Care Document ---
Author Author [facility] Organization [facility] Address Unknown Phone Unavailable Support Name Relationship Address Phone FELICIA DAUGHERTY Caregiver [facility] [address] [place] [address] ROBERTO SCHERER MD Caregiver [address] [place] [address] [phone] KAYLA GARCÍA Next Of Kin [address] [place] [address] Insurance Providers Payer Name Policy Number Subscriber Name Relationship [facility] [id number] Elyse Francisco 20 Self Advance Directives Directive [...] F (96.8 - 99.1) Temperature (Calculated Celsius) 36.90046 degrees C (36.0 - 37.3) Pulse Rate [...] Report March 02, 2014 4:17pm REFERENCE LAB [id number] - Lymphocytes # (Auto) September 08, 2014 [...] N 4.5-11.0 Name: ELYSE FRANCISCO Unit #: [id number] : [id number] Sex: F Loc / Svc: ANATOLY DOS: 08/17/14 Signed Report #: [id number] DIAGNOSTIC IMAGING REPORT TYPE OF EXAM: MRI [...] Encounters Encounter Location Date/Time Departed Emergency Room [facility] 09/08/14 1:39pm Registered [facility] 08/17/14 6:53am Recent Diagnosis
[2016-09-30 16:14] LABS: BASOPHILS % (AUTO) 0.6 % (0-2); EOSINOPHILS # (AUTO) 0.4 T/MM3 (0-0.5); EOSINOPHILS % (AUTO) 6.8 % (0-4); HCT - HEMATOCRIT 40.3 % (36-46); HGB - HEMOGLOBIN 13.5 GM/DL (12-16); IMMATURE GRANULOCYTE # (AUTO) 0.04 T/MM3 (0.00-0.03); IMMATURE GRANULOCYTE % (AUTO) 0.6 % (0.0-0.5); LYMPHOCYTES # (AUTO) 1.9 T/MM3 (1-4.8); LYMPHOCYTES % (AUTO) 31.2 % (23-45); MEAN CORPUSCULAR HGB 32.2 UUG (26-34); MEAN CORPUSCULAR HGB CONC(MCHC 33.5 GM/DL (31-37); MEAN CORPUSCULAR VOLUME 96.2 UM3 (80-100); MEAN PLATELET VOLUME 10.7 UM3 (9.4-12.4); MONOCYTES # (AUTO) 0.5 T/MM3 (0-0.8); MONOCYTES % (AUTO) 7.2 % (0-9.0); NEUTROPHILS #(AUTO)-ABSOLUTE 3.3 T/MM3 (1.8-7.7); NEUTROPHILS % (AUTO) 53.6 % (33-66); RED BLOOD COUNT 4.19 M/MM3 (4.00-5.20); WBC - WHITE BLOOD COUNT 6.2 T/MM3 (4.5-11.0)
[2016-09-30 16:16] LABS: INR 0.98 (0.76-1.04); PROTHROMBIN TIME 10.7 SEC (9.31-12.49)
--- NOTE | 2016-09-30 16:18 | NUR ---
DR DAUGHERTY IN
[2016-09-30 16:19] LABS: ANION GAP 14 MEQ/L (5-15); BUN/CREATININE RATIO 16 RATIO (6-26); CHLORIDE 108 MEQ/L (98-107); CO2 - CARBON DIOXIDE 20 MEQ/L (22-30); CREATININE 0.8 MG/DL (0.7-1.2); GLOMERULAR FILTRATION RATE 76; GLUCOSE 112 MG/DL (65-110); POTASSIUM 3.6 MEQ/L (3.6-5); SODIUM 142 MEQ/L (134-144)
--- NOTE | 2016-09-30 16:20 | DI ---
Indication: ITS.REASON: Generalized chest pain and chest tightness for two days PROCEDURE: CHEST 1 VIEW: Encounter: Initial Comparison: December 20, 2015 Findings: The lungs are stable in appearance without new focal airspace consolidation. There is no pleural effusion or pneumothorax. The heart size, pulmonary vascularity and mediastinal contours are unchanged. IMPRESSION: Stable appearance of the chest without acute cardiopulmonary disease. .
[2016-09-30] MEDS ORDERED: ALBU90AE INH (16:23)
[2016-09-30] MEDS ORDERED: ASPI-557 PO (16:23)
[2016-09-30 16:28] LABS: PROBNP 42 PG/ML (0-175)
[2016-09-30] MEDS ORDERED: PANTOPRAZOLE 40mg INJECTION IV ONE (16:30)
--- NOTE | 2016-09-30 16:30 | NUR ---
PAIN PT REPORTS ALL CP & BETANCOURT DISAPPEARED AFTER NTG X 1 GIVEN. BP IMPROVED
--- NOTE | 2016-09-30 17:00 | NUR ---
DR DAUGHERTY IN
[2016-09-30 17:12] VITALS: BP 128/78; PULSE 74; RESP 15; TEMP 98.1; O2SAT 97
--- NOTE | 2016-09-30 17:12 | NUR ---
AMA PT DOESN'T WANT TO STAY OBS PT. SHE SAYS SHE WILL RETURN IF SX RETURN. PT SIGNED AMA PAPER. DISCHARGED AMB. MONITOR SR. VS STABLE. NO PAIN
== END 2016-09-30 17:12 | disposition left against medical advice (07) ==
LOC: ED 15:37
DX: R07.89 Other chest pain (principal); I10 Essential (primary) hypertension; F17.200 Nicotine dependence, unspecified, uncomplicated
CPT/HCPCS: 71010; 80048; 83880; 84484; 85025; 85610; 93005; 96374; 99284; C9113